=== PATIENT | female | born 1940 | race Caucasian/White ===

== ENCOUNTER 2017-07-03 16:08 | Inpatient (IN) | payer MEDICARE, OTHER ==
[~2017-07-03] VITALS: Ht 162.6 cm; Wt 72.6 kg
[~2017-07-03 16:08] MED LIST: ACET500C5 PO; BEN25 PO; CARV3.1260 PO; CLOP75TA27 PO; FAMO-96 PO; GLYB5TAB3 PO; HYDR-3498 PO; METF1000 PO; OLME5TAB4 PO; ONDA4TAB35 PO; PRED20TA PO
--- NOTE | 2017-07-03 16:43 | ERD ---
ER Documentation Chief Complaint Date/Time DATE: 07/03/17 TIME: 16:42 Chief Complaint pt has dysuria for 10 days. with burning sensation no n/v, HPI Patient is a 77-year-old female who was diagnosed with UTI 8 days ago and treated with Levaquin who presents with ongoing dysuria during this time. She states that her symptoms did not improve at all despite treatment. She denies fever, back pain, vomiting. She denies vaginal discharge.She reports having a history of chronic cystitis for the last 25 years. She is also had recurrent UTIs. She was seen by her urologist 8 days, but states that he is now on vacation and does not have a physician covering for him. She incidentally reports having a ground-level trip and fall 2010 days ago with injury to her head. She denies loss of consciousness, vomiting, headache, loss of balance or dizziness. She does take Plavix for coronary artery disease. ROS All systems reviewed and are negative except as per history of present illness. Medications Home Meds Reported Medications Olmesartan Medoxomil (Benicar) 20 Mg Tablet, 20 MG PO BID Y for NEEDED, #30 TAB 07/03/17 Metformin Hcl* (Metformin Hcl*) 1,000 Mg Tablet, 1000 MG PO BID, TAB 08/27/15 Glyburide* (Glyburide*) 5 Mg Tablet, 10 MG PO BID, TAB 08/27/15 Clopidogrel Bisulfate (Clopidogrel) 75 Mg Tablet, 75 MG PO DAILY, TAB 08/27/15 Discontinued Reported Medications Olmesartan Medoxomil (Benicar) 5 Mg Tablet, 10 MG PO DAILY, TAB 08/27/15 Carvedilol* (Carvedilol*) 3.125 Mg Tablet, 3.125 MG PO BID, TAB 08/27/15 Discontinued Scripts Diphenhydramine Hcl* (Benadryl*) 25 Mg Cap, 25 MG PO Q6 Y for ALLERGIC REACTION , #10 TAB Prov:SARA HUMPHRIES DO 01/06/16 Prednisone* (Prednisone*) 20 Mg Tab, 60 MG PO DAILY for 4 Days, TAB Prov:SARA HUMPHRIES DO 01/06/16 Famotidine* (Pepcid*) 20 Mg Tablet, 20 MG PO BID for 4 Days, TAB Prov:SARA HUMPHRIES DO 01/06/16 Acetaminophen* (Tylophen*) 500 Mg Capsule, 2 CAP PO Q8H Y for PAIN AND OR ELEVATED TEMP, #20 CAP Prov:NICK REAGAN 08/27/15 Hydrocodone Bit-Acetaminophen* (Chrisney*) 5-325 Mg Tab, 1 TAB PO Q6 Y for PAIN, # 7 TAB Prov:NICK REAGAN 08/27/15 Ondansetron Hcl* (Zofran* ODT) 4 mg -ODT Tab.disper, 4 MG PO Q6 Y for NAUSEA AND /OR VOMITING, #10 TAB Prov:NICK REAGAN 08/27/15 Allergies Allergies: Coded Allergies: No Known Drug Allergies (Verified Allergy, Mild, 07/03/17) PMhx/Soc Past medical history: Diabetes mellitus, coronary artery disease, Chronic cystitis Past surgical history: 9 stents Social history: Denies tobacco or alcohol History of Surgery: Yes (cardiac stents) Anesthesia Reaction: No Hx Neurological Disorder: No Hx Respiratory Disorders: No Hx Cardiac Disorders: Yes (CAD,CARDIAC STENTS,HTN,) Hx Psychiatric Problems: No Hx Miscellaneous Medical Probl: Yes (DM) Hx Alcohol Use: No Hx Substance Use: No Hx Tobacco Use: No FmHx Family History: coronary disease, No diabetes Physical Exam Vitals Vital Signs Date Time Temp Pulse Resp B/P Pulse Ox O2 Delivery O2 Flow Rate FiO2 07/03/17 20:51 75 17 112/85 98 Room Air 07/03/17 16:15 98.6 81 20 119/81 98 Physical Exam Const: Alert, no acute distress Head: Small hematoma to right vertex. Eyes: Normal Conjunctiva, No pallor, no icterus ENT: Normal External Ears, Nose and Mouth.Mucous membranes moist Neck: Full range of motion..~ No meningismus. Resp: Clear to auscultation bilaterally, No wheezes, no rales Cardio: Regular rate and rhythm, no murmurs Abd: Soft, non tender, non distended. Skin: No petechiae or rashes Back: No midline or flank tenderness Ext: No cyanosis, or edema Neur: Awake and alert, Cranial nerves II through XII intact bilaterally, strength and sensation full in 4 extremities, No pronator drift, no dysmetria Psych: Normal Mood and Affect Result Diagram: 9/6/17 1810 9/6/17 1810 Results 24 hrs Laboratory Tests Test 07/03/17 16:30 07/03/17 18:10 Urine Color YELLOW Urine Clarity TURBID Urine pH 5.0 Urine Specific [place] 1.014 Urine Ketones NEGATIVEmg/dL Urine Nitrite POSITIVEmg/dL Urine Bilirubin NEGATIVEmg/dL Urine Urobilinogen NEGATIVEmg/dL Urine Leukocyte Esterase 3+Jhon/ul Urine Microscopic RBC 88/HPF Urine Microscopic WBC > 182/HPF Urine Squamous Epithelial Cells FEW/HPF Urine Bacteria MANY/HPF Urine Mucus FEW/HPF Urine Hemoglobin 1+mg/dL Urine Glucose NEGATIVEmg/dL Urine Total Protein 1+mg/dl White Blood Count 10.810^3/ul Red Blood Count 4.2910^6/ul Hemoglobin 12.0g/dl Hematocrit 36.2% Mean Corpuscular Volume 84.4fl Mean Corpuscular Hemoglobin 28.0pg Mean Corpuscular Hemoglobin Concent 33.1g/dl Red Cell Distribution Width 12.7% Platelet Count 27548^3/UL Mean Platelet Volume 10.0fl Neutrophils % 78.9% Lymphocytes % 13.7% Monocytes % 5.9% Eosinophils % 0.5% Basophils % 0.3% Nucleated Red Blood Cells % 0.0/100WBC Neutrophils # (Manual) 8.610^3/ul Lymphocytes # 1.510^3/ul Monocytes # 0.610^3/ul Eosinophils # 0.110^3/ul Basophils # 0.010^3/ul Nucleated Red Blood Cells # 0.010^3/ul Sodium Level 137mmol/L Potassium Level 5.0mmol/L Chloride Level 102mmol/L Carbon Dioxide Level 26mmol/L Anion Gap 14 Blood Urea Nitrogen 20mg/dl Creatinine 0.98mg/dl Glucose Level 77mg/dl Calcium Level 9.9mg/dl Current Medications Medications (Trade) Dose Ordered Sig/Lesvia Route PRN Reason Start Time Stop Time Status Last Admin Dose Admin Ceftriaxone Sodium 1 gm 1 gm ONCE ONCE IM 07/03/17 18:00 07/03/17 18:04 DC 07/03/17 17:56 Cefepime HCl (Maxipime 2gm/50 ml (Pmx)) 50 ml @ 100 mls/hr ONCE ONCE IVPB 07/03/17 18:30 07/03/17 18:59 DC 07/03/17 18:34 Ondansetron HCl (Zofran Inj) 4 mg BRIDGE ORDER PRN IV NAUSEA AND/OR VOMITING 07/03/17 21:00 07/04/17 20:59 Acetaminophen (Tylenol Tab) 650 mg ER BRIDGE PRN PO MILD PAIN/FEVER 07/03/17 21:00 07/04/17 20:59 Procedures/MDM MDM: Patient is a 77-year-old female with history of chronic cystitis and recurrent UTIs who presents to the ER with failed outpatient treatment for urinary tract infection. Her UA is consistent with ongoing UTI, as evidenced by positive nitrite and numerous leukocytes as well as bacteria. She does not have evidence of sepsis or pyelonephritis. Her vital signs are stable and she has no fever or back pain. I reviewed her prior urine culture, and she has history of ESBL Klebsiella. I spoke with her PMD, Dr. Guerra, and he recommended admission for IV antibiotics and urology and ID consults, and likely PICC line for ongoing outpatient treatment. The patient is high risk for developing sepsis due to untreated UTI and underlying coronary artery disease and diabetes. She was given a dose of cefepime based upon prior sensitivities on last culture. A new culture was sent. With regard to her incidental minor head injury, the patient has no neurological symptoms or high risk features for intracranial injury despite being on Plavix. Given that it is been 10 days and she is asymptomatic, I do not believe that neuroimaging is emergently indicated. Departure Diagnosis: Primary Impression: Complicated urinary tract infection Additional Impression: Minor head injury Encounter type: initial encounter Qualified Code: S00.90XA - Minor head injury, initial encounter Condition: NAEEM Aragon MD Jul 03, 2017 16:43
[2017-07-03] MEDS ORDERED: OLME20TA20 PO (17:21)
[2017-07-03 17:32] LABS: ADD UMIC YES; UR ASCORBIC ACID NEGATIVE (NEGATIVE); UR BACTERIA MANY /HPF (NONE SEEN); UR BILIRUBIN (Dip) NEGATIVE (NEGATIVE); UR BLOOD (Dip) 1+ mg/dL (NEGATIVE); UR CLARITY TURBID (CLEAR); UR COLOR YELLOW (YELLOW); UR GLUCOSE (Dip) NEGATIVE (NEGATIVE); UR KETONES (Dip) NEGATIVE (NEGATIVE); UR LEUKOCYTE ESTERASE (Dip) 3+ Leu/ul (NEGATIVE); UR MUCUS FEW /HPF (NONE SEEN); UR NITRITE (Dip) POSITIVE (NEGATIVE); UR NONSQUAMOUS EPITHELIAL CELL 2 /HPF (NONE SEEN); UR RBC 88 /HPF (0-5); UR SPECIFIC GRAVITY (Dip) 1.014 (1.003-1.030); UR SQUAMOUS EPITHELIAL CELL FEW /HPF (FEW); UR TOTAL PROTEIN (Dip) 1+ mg/dl (NEGATIVE); UR UROBILINOGEN (Dip) NEGATIVE (NEGATIVE); UR WBC CLUMPS FEW /HPF (NONE SEEN)
[2017-07-03] MEDS ORDERED: CEFTRIAXONE 1 GM INJ IM ONE (18:00)
[2017-07-03] MEDS ORDERED: CEFEPIME 2GM/50 ML (PMX) 50 ML IVPB ONE (18:30)
[2017-07-03 18:52] LABS: HEMATOCRIT 36.2 % (37.0-47.0); MEAN CORPUSCULAR VOLUME 84.4 fl (82.0-101.0); RED BLOOD COUNT 4.29 10^6/ul (4.20-5.40); WHITE BLOOD COUNT 10.8 10^3/ul (4.8-10.8)
[2017-07-03 18:53] LABS: BASOPHILS % 0.3 % (0.0-2.0); EOSINOPHILS % 0.5 % (0.0-7.0); LYMPHOCYTES % 13.7 % (15.0-51.0); MEAN CORPUSCULAR HGB CONC 33.1 g/dl (32.0-37.0); MONOCYTES % 5.9 % (0.0-11.0); NEUTROPHILS % 78.9 % (39.0-77.0); PLATELET COUNT 313 10^3/UL (140-440); RED CELL DISTRIBUTION WIDTH 12.7 % (11.5-14.5)
[2017-07-03 18:54] LABS: EOSINOPHILS # 0.1 10^3/ul (0.0-0.5); LYMPHOCYTES # 1.5 10^3/ul (0.8-2.9); MONOCYTE # 0.6 10^3/ul (0.3-0.9)
[2017-07-03 19:10] LABS: CALCIUM 9.9 mg/dl (8.4-10.2); CREATININE 0.98 mg/dl (0.44-1.00)
[2017-07-03 20:51] VITALS: PULSE 75
[2017-07-03] MEDS ORDERED: ONDANSETRON 4 MG INJ IV PRN ×2 (21:00→23:00)
[2017-07-03] MEDS ORDERED: ACETAMINOPHEN 325 MG TAB PO PRN ×2 (21:00→23:00)
[2017-07-03 23:00] VITALS: Ht 162.6 cm; Wt 72.6 kg
[2017-07-03] MEDS ORDERED: NACL 0.9% 3 ML SYG IV SCH (23:00)
[2017-07-03] MEDS ORDERED: DOCUSATE SODIUM 100 MG CAP PO PRN (23:00)
[2017-07-03] MEDS ORDERED: BISACODYL (EC) 5 MG TAB PO PRN (23:00)
--- NOTE | 2017-07-03 23:09 | HP ---
Date/Time of Note Date/Time of Note DATE: 07/03/17 TIME: 22:56 Assessment/Plan VTE Prophylaxis VTE Prophylaxis Intervention: SCD's Lines/Catheters Urinary Cath still in place: No Assessment/Plan Chief Complaint/Hosp Course This is a 77-year-old female being admitted to the [facility] floor for: #1 complicated UTI: Patient is a history of recurrent urinary tract infections as well as bladder surgery. Currently patient is afebrile and white blood cell count is normal values. However UA is positive for UTI. She was recently treated with Levaquin as an outpatient. At the current time will treat with cefepime 2 g every 12 hours. Will await urine cultures results for sensitivities. Microbiology from 2014 does show Klebsiella pneumonia which was sensitive to cefepime as well as imipenem. She has already been started on cefepime and I will continue her on this medication at this time. Patient likely will need long-term duration of treatment and likely will need consider PICC line insertion however will wait for sensitivities. May also need urology consultation as well as ID. #2 diabetes mellitus: At the current time will check hemoglobin A1c, will hold home medications. Will put patient on insulin sliding scale. #3 coronary artery disease: Patient currently is only on Plavix. #4 hypertension: Continue Benicar, monitor blood pressure. #5 DVT GI prophylaxis: SCDs, as a vianey Problems: HPI/ROS Admit Date/Time Admit Date/Time Jul 03, 2017 at 20:56 Hx of Present Illness Complaint: Dysuria Patient is a 77-year-old female who was diagnosed with UTI 8 days ago and treated with Levaquin who presents with ongoing dysuria during this time. She states that her symptoms did not improve at all despite treatment. She denies fever, back pain, vomiting. She denies vaginal discharge.She reports having a history of chronic cystitis for the last 25 years. She is also had recurrent UTIs. She was seen by her urologist 8 days ago, but states that he is now on vacation and does not have a physician covering for him. She incidentally reports having a ground-level trip and fall 10 days ago with injury to her head. She denies loss of consciousness, vomiting, headache, loss of balance or dizziness. She does take Plavix for coronary artery disease. Allergies: NKDA Medications: See RACHEL RIVERS Const: As per HPI Eyes : No pain discharge or redness or change in visual acuity ENT: No pain, sore throat, congestion, congestion, dysphagia or discharge Respiratory: No shortness of breath, cough, sputum, wheezing, or pleuritic pain Cardiovascular: No chest pain, palpitation, PND, or edema GI : no change in appetite, abdominal pain, nausea, vomiting, diarrhea, constipation, or change in the color his stool Genitourinary: As per HPI Musculoskeletal: No joint pain, back pain, neck pain, restricted range of motion in neck or joints Skin: No rash, bruising or hives Neuro: No headache, dizziness, syncope, seizure, focal weakness Endocrine: No polyuria, polydipsia, temperature intolerance Psych: No hallucination, depression, anxiety or suicidal ideation PMH/Family/Social Past Medical History Beatties mellitus hypertension, coronary artery disease, chronic cystitis Past Surgical History Cardiac stent, bladder surgery Family History Significant Family History: no pertinent family hx Social History Alcohol Use: none Smoking Status: Never smoker Drug Use: none Exam/Review of Systems Vital Signs Vitals Vital Signs Date Time Temp Pulse Resp B/P Pulse Ox O2 Delivery O2 Flow Rate FiO2 07/03/17 20:51 75 17 112/85 98 Room Air 07/03/17 16:15 98.6 Exam Exam General: She is a well-developed female lying in bed in no acute distress she is very pleasant HEENT: Right posterior scalp bruising noted, no bleeding, EOMI Neck: Supple with full range of motion. No rigidity or meningismus Chest: Nontender Lungs: Clear to auscultation bilaterally no crackles rales or wheezing Heart: Normal S1-S2, Regular rhythm and rate. No overt murmur appreciated Abdomen: Soft , nontender, nondistended , bowel sounds are present. No guarding no rebound tenderness , No masses or organomegaly. No costovertebral temporal angle mass Extremities: Normal to inspection, no edema no cyanosis Neurologic: Normal mental status, speech normal, cranial nerves II through XII are intact, motor and sensory are intact, no focal weakness Labs Result Diagram: 07/03/17180907/03/171809 ALISON HANSEN Jul 03, 2017 23:08 ALISON HANSEN Jul 03, 2017 23:08
[2017-07-03] MEDS: FAMOTIDINE 20 MG TAB PO SCH (23:43)
[2017-07-04] MEDS: ACCU-CHEK XX SCH (02:00)
[2017-07-04] MEDS ORDERED: ACCU-CHEK XX SCH (02:00)
[2017-07-04 06:37] LABS: BASOPHILS % 0.3 % (0.0-2.0); EOSINOPHILS # 0.1 10^3/ul (0.0-0.5); EOSINOPHILS % 1.1 % (0.0-7.0); HEMATOCRIT 35.8 % (37.0-47.0); HEMOGLOBIN 11.6 g/dl (12.0-16.0); LYMPHOCYTES # 0.7 10^3/ul (0.8-2.9); LYMPHOCYTES % 7.9 % (15.0-51.0); MEAN CORPUSCULAR HEMOGLOBIN 27.2 pg (29.0-33.0); MEAN CORPUSCULAR HGB CONC 32.4 g/dl (32.0-37.0); MEAN PLATELET VOLUME 9.9 fl (7.4-10.4); MONOCYTE # 0.6 10^3/ul (0.3-0.9); MONOCYTES % 6.8 % (0.0-11.0); NEUTROPHILS % 83.4 % (39.0-77.0); PLATELET COUNT 263 10^3/UL (140-415); RED BLOOD COUNT 4.26 10^6/ul (4.20-5.40); RED CELL DISTRIBUTION WIDTH 12.8 % (11.5-14.5); WHITE BLOOD COUNT 8.9 10^3/ul (4.8-10.8)
[2017-07-04 07:02] LABS: ALBUMIN 3.6 g/dl (3.3-4.9); ALBUMIN/GLOBULIN RATIO 1.38; BILIRUBIN,INDIRECT 0.1 mg/dl (0-1.1); BILIRUBIN,TOTAL 0.1 mg/dl (0.2-1.3); CALCIUM 9.6 mg/dl (8.4-10.2); CHOL/HDL RATIO 2.8 RATIO; CREATININE 0.92 mg/dl (0.44-1.00); MAGNESIUM 1.8 mg/dl (1.7-2.5); PHOSPHORUS 4.1 mg/dl (2.5-4.9); POTASSIUM 4.7 mmol/L (3.5-5.1); TOTAL PROTEIN 6.2 g/dl (6.1-8.1)
[2017-07-04 07:29] LABS: THYROID STIMULATING HORMONE 0.922 MIU/L (0.465-4.680)
[2017-07-04] MEDS: INSULIN ASPART [NOVOLOG] 3 ML PEN SC SCH ×4 (08:00→21:02)
[2017-07-04] MEDS ORDERED: GLUCOSE GEL 15 GRAM TUBE PO PRN ×2 (08:30)
[2017-07-04] MEDS ORDERED: GLUCOSE GEL 15 GRAM TUBE BUCCAL PRN (08:30)
[2017-07-04] MEDS ORDERED: DEXTROSE 50% 50 ML SYRINGE IV PRN ×2 (08:30)
[2017-07-04] MEDS ORDERED: GLUCAGON 1 MG INJ IM PRN (08:30)
[2017-07-04] MEDS: FAMOTIDINE 20 MG TAB PO SCH ×2 (10:07→20:53)
[2017-07-04] MEDS: CEFEPIME 2GM/50 ML (PMX) 50 ML IVPB SCH ×2 (10:07→21:03)
[2017-07-04] MEDS: [UNRECOGNIZED DRUG - REMARK] XX SCH ×2 (12:00→20:00)
[2017-07-04 12:35] VITALS: BP 100/52; RESP 18
--- NOTE | 2017-07-04 16:39 | PN ---
Date/Time of Note Date/Time of Note DATE: 07/04/17 TIME: 16:28 Assessment/Plan VTE Prophylaxis VTE Prophylaxis Intervention: other Lines/Catheters IV Catheter Type (from Nrs): Saline Lock Urinary Cath still in place: No Assessment/Plan Assessment/Plan 1. Complicated UTI - patient is symptomatic with +UA. Awaiting final culture and sensitivities - Will continue on Cefepime for now and change if needed based on sensitivities - Will try and get further information from patient about bladder surgery when more cooperative. Having to run to the restroom often during interview. Will hold off on Urology at this time. - Will give 2 days of Pyridium for relief of dysuria 2. Diabetes mellitus - A1c 8.1 - On Metformin at home and on hold during hospitalization - On insulin sliding scale and accuchecks 3. CAD - stable. continue on Plavix 4. HTN - stable. continue on current medication Subjective 24 Hr Interval Summary Free Text/Dictation Patient seen and examined. She states she is still experiencing discomfort with urination as well as urgency. Denies any fevers, chills, nausea, vomiting , chest pain, or shortness of breath. Exam/Review of Systems Vital Signs Vitals Vital Signs Date Time Temp Pulse Resp B/P Pulse Ox O2 Delivery O2 Flow Rate FiO2 07/04/17 12:35 98.1 78 18 100/52 98 07/03/17 20:51 Room Air Intake and Output 07/03/17 07/03/17 07/04/17 15:00 23:00 07:00 Intake Total 340 ml Balance 340 ml Exam General: well developed, mild distress due to urge to urinate HEENT: Right posterior scalp bruising noted, no bleeding, EOMI Neck: Supple with full range of motion. Lungs: Clear to auscultation bilaterally no crackles rales or wheezing Heart:: Regular rhythm and rate. No overt murmur appreciated Abdomen: Soft , nontender, nondistended No guarding no rebound tenderness , No CVA tenderness Extremities: no edema no cyanosis Results Result Diagram: 07/04/17 0543 07/04/17 0544 Results 24 hrs Laboratory Tests Test 07/03/17 16:30 07/03/17 18:10 07/03/17 23:36 07/04/17 05:43 Urine Color YELLOW Urine Clarity TURBID A Urine pH 5.0 Urine Specific [place] 1.014 Urine Ketones NEGATIVE Urine Nitrite POSITIVE A Urine Bilirubin NEGATIVE Urine Urobilinogen NEGATIVE Urine Leukocyte Esterase 3+ H Urine Microscopic RBC 88 H Urine Microscopic WBC > 182 H Urine Squamous Epithelial Cells FEW Urine Bacteria MANY A Urine Mucus FEW A Urine Hemoglobin 1+ H Urine Glucose NEGATIVE Urine Total Protein 1+ H White Blood Count 10.8 8.9 Red Blood Count 4.29 4.26 Hemoglobin 12.0 11.6 L Hematocrit 36.2 L 35.8 L Mean Corpuscular Volume 84.4 84.0 Mean Corpuscular Hemoglobin 28.0 L 27.2 L Mean Corpuscular Hemoglobin Concent 33.1 32.4 Red Cell Distribution Width 12.7 12.8 Platelet Count 313 263 Mean Platelet Volume 10.0 # 9.9 Neutrophils % 78.9 H 83.4 H Lymphocytes % 13.7 L 7.9 L Monocytes % 5.9 6.8 Eosinophils % 0.5 1.1 Basophils % 0.3 0.3 Nucleated Red Blood Cells % 0.0 0.0 Neutrophils # (Manual) 8.6 H 7.4 Lymphocytes # 1.5 0.7 L Monocytes # 0.6 0.6 Eosinophils # 0.1 0.1 Basophils # 0.0 0.0 Nucleated Red Blood Cells # 0.0 0.0 Sodium Level 137 Potassium Level 5.0 Chloride Level 102 Carbon Dioxide Level 26 Anion Gap 14 Blood Urea Nitrogen 20 Creatinine 0.98 Glucose Level 77 Calcium Level 9.9 Bedside Glucose 91 Test 07/04/17 05:44 07/04/17 08:34 07/04/17 12:00 Sodium Level 138 Potassium Level 4.7 Chloride Level 104 Carbon Dioxide Level 27 Anion Gap 12 Blood Urea Nitrogen 20 Creatinine 0.92 Glucose Level 135 # Hemoglobin A1c 8.1 H Calcium Level 9.6 Phosphorus Level 4.1 Magnesium Level 1.8 Total Bilirubin 0.1 L Direct Bilirubin 0.00 Indirect Bilirubin 0.1 Aspartate Amino Transf (AST/SGOT) 18 Alanine Aminotransferase (ALT/SGPT) 33 Alkaline Phosphatase 71 Total Protein 6.2 Albumin 3.6 Globulin 2.60 Albumin/Globulin Ratio 1.38 Triglycerides Level 129 Cholesterol Level 136 LDL Cholesterol, Calculated 63 HDL Cholesterol 47 Cholesterol/HDL Ratio 2.8 Thyroid Stimulating Hormone (TSH) 0.922 Bedside Glucose 147 174 Medications Medications Current Medications Ondansetron HCl (Zofran Inj) 4 mg Q6H PRN IV NAUSEA AND/OR VOMITING; Start 07/03 at 23:00 Acetaminophen (Tylenol Tab) 650 mg Q6H PRN PO PAIN LEVEL 1-3 OR FEVER; Start at 23:00 Docusate Sodium (Colace) 100 mg Q12H PRN PO CONSTIPATION; Start 07/03/17 at 23: 00 Bisacodyl (Dulcolax) 5 mg DAILY PRN PO CONSTIPATION; Start 07/03/17 at 23:00 Famotidine 20 mg 20 mg Q12 PO Last administered on 07/04/17 10:07; Admin Dose 20 MG; Start 07/03/17 at 23:00 Cefepime HCl (Maxipime 2gm/50 ml (Pmx)) 50 ml @ 100 mls/hr Q12 IVPB Last administered on 07/04/17 10:07; Admin Dose 100 MLS/HR; Start 07/04/17 at 09:00 Miscellaneous Information 20 mg BID PRN PO NEEDED; Start 07/03/17 at 23:30; Status UNV Diagnostic Test (Pha) (Accu-Chek) 1 ea 02 XX ; Start 07/04/17 at 02:00 Miscellaneous Information 1 ea NOTE XX ; Start 07/04/17 at 08:30 Glucose (Glutose) 15 gm Q15M PRN PO DECREASED GLUCOSE; Start 07/04/17 at 08:30 Glucose (Glutose) 22.5 gm Q15M PRN PO DECREASED GLUCOSE; Start 07/04/17 at 08:30 Dextrose (D50w Syringe) 25 ml Q15M PRN IV DECREASED GLUCOSE; Start 07/04/17 at 08:30 Dextrose (D50w Syringe) 50 ml Q15M PRN IV DECREASED GLUCOSE; Start 07/04/17 at 08:30 Glucagon (Glucagen) 1 mg Q15M PRN IM DECREASED GLUCOSE; Start 07/04/17 at 08:30 Glucose (Glutose) 15 gm Q15M PRN BUCCAL DECREASED GLUCOSE; Start 07/04/17 at 08: 30 Miscellaneous Information (*Order Clarification Bulletin) MEDICATION REQUIRES CLARIFICATION: Q8H XX ; Start 07/04/17 at 12:00 Phenazopyridine HCl (Pyridium) 100 mg TID PO ; Start 07/04/17 at 16:30; Stop 07/06 at 21:00; Status UNV DONAVAN OLSEN MD Jul 04, 2017 16:39
[2017-07-04 17:02] VITALS: BP 127/67; RESP 20
[2017-07-04] MEDS: PHENAZOPYRIDINE 100 MG TAB PO SCH ×2 (17:49→20:53)
[2017-07-04 21:00] VITALS: BP 132/63; RESP 18
[2017-07-05] MEDS: ACCU-CHEK XX SCH (02:00)
[2017-07-05] MEDS: [UNRECOGNIZED DRUG - REMARK] XX SCH ×3 (02:56→20:00)
[2017-07-05 03:14] VITALS: BP 133/58; RESP 18
[2017-07-05 06:40] LABS: BASOPHIL # 0.1 10^3/ul (0.0-0.1); BASOPHILS % 0.7 % (0.0-2.0); EOSINOPHILS # 0.1 10^3/ul (0.0-0.5); EOSINOPHILS % 1.1 % (0.0-7.0); HEMATOCRIT 36.1 % (37.0-47.0); HEMOGLOBIN 11.5 g/dl (12.0-16.0); LYMPHOCYTES % 10.9 % (15.0-51.0); MEAN CORPUSCULAR HEMOGLOBIN 26.9 pg (29.0-33.0); MEAN CORPUSCULAR HGB CONC 31.9 g/dl (32.0-37.0); MEAN CORPUSCULAR VOLUME 84.3 fl (82.0-101.0); MEAN PLATELET VOLUME 9.8 fl (7.4-10.4); MONOCYTE # 0.7 10^3/ul (0.3-0.9); MONOCYTES % 7.3 % (0.0-11.0); NEUTROPHILS % 78.9 % (39.0-77.0); PLATELET COUNT 262 10^3/UL (140-415); RED BLOOD COUNT 4.28 10^6/ul (4.20-5.40); RED CELL DISTRIBUTION WIDTH 12.6 % (11.5-14.5); WHITE BLOOD COUNT 8.9 10^3/ul (4.8-10.8)
[2017-07-05 07:22] LABS: ALBUMIN 3.6 g/dl (3.3-4.9); CALCIUM 9.8 mg/dl (8.4-10.2); CREATININE 0.85 mg/dl (0.44-1.00); MAGNESIUM 1.7 mg/dl (1.7-2.5); POTASSIUM 4.6 mmol/L (3.5-5.1)
[2017-07-05 07:58] VITALS: BP 102/56; RESP 18
[2017-07-05] MEDS: PHENAZOPYRIDINE 100 MG TAB PO SCH ×3 (08:16→21:24)
[2017-07-05] MEDS: FAMOTIDINE 20 MG TAB PO SCH ×2 (08:16→21:25)
[2017-07-05] MEDS: INSULIN ASPART [NOVOLOG] 3 ML PEN SC SCH ×4 (08:17→21:33)
[2017-07-05] MEDS: CEFEPIME 2GM/50 ML (PMX) 50 ML IVPB SCH ×2 (08:21→21:25)
[2017-07-05 15:43] VITALS: BP 153/71; RESP 18
--- NOTE | 2017-07-05 17:55 | PN ---
Date/Time of Note Date/Time of Note DATE: 07/05/17 TIME: 17:51 Assessment/Plan VTE Prophylaxis VTE Prophylaxis Intervention: other Lines/Catheters IV [facility] Saline Lock Urinary Cath still in place: No Assessment/Plan Assessment/Plan 1. Complicated UTI - patient is symptomatic with +UA. - Cultures growing Klebsiella and sensitive to cephalosporins - Will continue on Cefepime for now and change to Keflex upon discharge - Patient states the last time she experienced these symptoms she was seen by Urology who helped "clean it up". Will obtain Urology consult and appreciate recommendations - Will give 2 days of Pyridium for relief of dysuria 2. Diabetes mellitus - A1c 8.1 - On Metformin at home and on hold during hospitalization - On insulin sliding scale and accuchecks 3. CAD - stable. continue on Plavix 4. HTN - stable. continue on current medication Subjective 24 Hr Interval Summary Free Text/Dictation Patient states shes still not feeling well and concerned about her foul smelling urine and states when this has happened in the past she had a urologist "clean it out" and symptoms resolved. Her urologist is out of town for 1 month and requesting to see another Urologist. Denies any other acute issues and no overnight events. Exam/Review of Systems Vital Signs Vitals Vital Signs Date Time Temp Pulse Resp B/P Pulse Ox O2 Delivery O2 Flow Rate FiO2 07/05/17 15:43 98.2 76 18 153/71 97 07/03/17 20:51 Room Air Intake and Output 07/04/17 07/04/17 07/05/17 14:59 22:59 06:59 Intake Total 50 ml 800 ml 900 ml Output Total 600 ml Balance 50 ml 200 ml 900 ml Exam General: well developed, cooperative, NAD HEENT: Right posterior scalp bruising noted, no bleeding, EOMI Neck: Supple with full range of motion. Lungs: Clear to auscultation bilaterally no crackles rales or wheezing Heart:: Regular rhythm and rate. No overt murmur appreciated Abdomen: Soft , nontender, nondistended No guarding no rebound tenderness , No CVA tenderness Extremities: no edema no cyanosis Results Result Diagram: 07/05/17 0543 07/05/17 0543 Results 24 hrs Laboratory Tests Test 07/04/17 20:50 07/05/17 05:43 07/05/17 08:14 07/05/17 11:56 Bedside Glucose 239 H 197 232 H White Blood Count 8.9 Red Blood Count 4.28 Hemoglobin 11.5 L Hematocrit 36.1 L Mean Corpuscular Volume 84.3 Mean Corpuscular Hemoglobin 26.9 L Mean Corpuscular Hemoglobin Concent 31.9 L Red Cell Distribution Width 12.6 Platelet Count 262 Mean Platelet Volume 9.8 Neutrophils % 78.9 H Lymphocytes % 10.9 L Monocytes % 7.3 Eosinophils % 1.1 Basophils % 0.7 Nucleated Red Blood Cells % 0.0 Neutrophils # (Manual) 7.0 Lymphocytes # 1.0 Monocytes # 0.7 Eosinophils # 0.1 Basophils # 0.1 Nucleated Red Blood Cells # 0.0 Sodium Level 136 Potassium Level 4.6 Chloride Level 100 Carbon Dioxide Level 28 Anion Gap 13 Blood Urea Nitrogen 20 Creatinine 0.85 Glucose Level 205 Calcium Level 9.8 Phosphorus Level 4.0 Magnesium Level 1.7 Albumin 3.6 Test 07/05/17 17:20 Bedside Glucose 182 Medications Medications Current Medications Ondansetron HCl (Zofran Inj) 4 mg Q6H PRN IV NAUSEA AND/OR VOMITING; Start 07/03 at 23:00 Acetaminophen (Tylenol Tab) 650 mg Q6H PRN PO PAIN LEVEL 1-3 OR FEVER; Start at 23:00 Docusate Sodium (Colace) 100 mg Q12H PRN PO CONSTIPATION; Start 07/03/17 at 23: 00 Bisacodyl (Dulcolax) 5 mg DAILY PRN PO CONSTIPATION; Start 07/03/17 at 23:00 Famotidine 20 mg 20 mg Q12 PO Last administered on 07/05/17 08:16; Admin Dose 20 MG; Start 07/03/17 at 23:00 Cefepime HCl (Maxipime 2gm/50 ml (Pmx)) 50 ml @ 100 mls/hr Q12 IVPB Last administered on 07/05/17 08:21; Admin Dose 100 MLS/HR; Start 07/04/17 at 09:00 Miscellaneous Information 20 mg BID PRN PO NEEDED; Start 07/03/17 at 23:30; Status UNV Diagnostic Test (Pha) (Accu-Chek) 1 ea 02 XX ; Start 07/04/17 at 02:00 Miscellaneous Information 1 ea NOTE XX ; Start 07/04/17 at 08:30 Glucose (Glutose) 15 gm Q15M PRN PO DECREASED GLUCOSE; Start 07/04/17 at 08:30 Glucose (Glutose) 22.5 gm Q15M PRN PO DECREASED GLUCOSE; Start 07/04/17 at 08:30 Dextrose (D50w Syringe) 25 ml Q15M PRN IV DECREASED GLUCOSE; Start 07/04/17 at 08:30 Dextrose (D50w Syringe) 50 ml Q15M PRN IV DECREASED GLUCOSE; Start 07/04/17 at 08:30 Glucagon (Glucagen) 1 mg Q15M PRN IM DECREASED GLUCOSE; Start 07/04/17 at 08:30 Glucose (Glutose) 15 gm Q15M PRN BUCCAL DECREASED GLUCOSE; Start 07/04/17 at 08: 30 Miscellaneous Information (*Order Clarification Bulletin) MEDICATION REQUIRES CLARIFICATION: Q8H XX ; Start 07/04/17 at 12:00 Phenazopyridine HCl (Pyridium) 100 mg TID PO Last administered on 07/05/17t 12: 31; Admin Dose 100 MG; Start 07/04/17 at 16:30; Stop 07/06/17 at 21:00 DONAVAN OLSEN MD Jul 05, 2017 17:55
[2017-07-05 19:50] VITALS: BP 121/66; RESP 19
--- NOTE | 2017-07-05 21:09 | CONS ---
Date/Time of Note Date/Time of Note DATE: 07/05/17 TIME: 20:54 Assessment/Plan Assessment/Plan Chief Complaint/Hosp Course 77-year-old female with recurrent urinary tract infection and kidney stones. Presently she does have left upper ureteral stone was left hydronephrosis however she herself complains more of pain in the suprapubic area and in the urethra from having dysuria and much less from her left kidney. She does have a history of bladder lift with a mesh and that is hurting her and she has seen other urologists in the past because of that. Presently we shall treat her urinary tract infection. We will get a KUB to see if we can see the stones on the plain film. As far as the treatment for the stones we will have to talk to her and her family again there is a problem here was language barrier and the patient is more centered on her bladder problem rather than on her ureteral and kidney stones. I did spend over 1 hour with this patient explaining discussing her urinary problem even she asked me about the bump on her head whether that would go away and all this time we had to use a pharmacy manager who translated to her intermediate and to us in [place]ic . Problems: Consultation Date/Type/Reason Admit Date/Time Jul 03, 2017 at 20:56 Date of Consultation: Jul 05, 2017 Type of Consultation: Urology Reason for Consultation Left upper ureteral stone was hydronephrosis and urinary tract infection. Referring Provider: DONAVAN OLSEN MD Hx of Present Illness This is a 77-year-old female who speaks only [place] who presented to the hospital was pain on urination and recurrent urinary tract infection. He had a pharmacy manager on the phone translating to her her name is Aminata WEINBERG per ID # [id number] the patient states that she has been having pain with her urination her bladder hurts. She had surgery for bladder about 2 years ago and most likely they use a mesh. She has seen multiple urologists and she was told and that is her "by her doctor that the mesh was put around or bad material and the doctor could not take it out. She knows that she has had kidney stones and she said that has cleaned her before. However she underwent a CT scan of the abdomen and pelvis here and that showed a left upper ureteral stone with hydronephrosis in addition to bilateral renal stones. Subjective hx not possible: other Constitutional: no complaints Eyes: no complaints ENT: no complaints Respiratory: no complaints Cardiovascular: No chest pain Gastrointestinal: pain (In suprapubic area) Genitourinary: dysuria Musculoskeletal: no complaints Skin: bruising, other (Patient states that she fell about 2 weeks ago and she has a bump on her head) Neurologic: No confusion, No dizziness Psychological: anxiety Past Medical History Medical History: coronary artery disease, diabetes, urinary tract infection Past Surgical History Past Surgical Hx: other (Bladder lift with a mesh) Social History Alcohol Use: none Smoking Status: Never smoker Drug Use: none Other Social History 2 para 2, 2 normal deliveries Exam/Review of Systems Vital Signs Vitals Vital Signs Date Time Temp Pulse Resp B/P Pulse Ox O2 Delivery O2 Flow Rate FiO2 07/05/17 15:43 98.2 76 18 153/71 97 07/03/17 20:51 Room Air Intake and Output 07/04/17 07/04/17 07/05/17 15:00 23:00 07:00 Intake Total 50 ml 900 ml 800 ml Output Total 600 ml Balance 50 ml 300 ml 800 ml Exam Constitutional: alert, oriented Psych: no complaints Head: other (She has a bump on her head from recent fall 2 weeks ago) Eyes: nl conjunctiva ENMT: nl external ears & nose Neck: supple Respiratory: normal air movement Cardiovascular: No edema Gastrointestinal: soft, No mass Genitourinary - Female: CVA tenderness (Left side), other (Suprapubic tenderness) Musculoskeletal: nl extremities to inspection Extremities: No calf tenderness Results CT scan of abdomen and pelvis: 1. Mild left hydroureteronephrosis with perinephric stranding related to 1.3 cm obstructing stone in the proximal left ureter. 2. Additional smaller nonobstructing stones in bilateral kidneys measures up to 5 mm left greater than right. 3. Small area of scarring involving the upper pole right kidney. 4. Vascular calcifications. 5. Cardiomegaly, trace bilateral pleural effusions. Pleural parenchymal scarring and fibrotic changes in the lung bases. Result Diagram: 07/05/17 0543 07/05/17 0543 Results 24 hrs Laboratory Tests Test 07/05/17 05:43 07/05/17 08:14 07/05/17 11:56 07/05/17 17:20 White Blood Count 8.9 Red Blood Count 4.28 Hemoglobin 11.5 L Hematocrit 36.1 L Mean Corpuscular Volume 84.3 Mean Corpuscular Hemoglobin 26.9 L Mean Corpuscular Hemoglobin Concent 31.9 L Red Cell Distribution Width 12.6 Platelet Count 262 Mean Platelet Volume 9.8 Neutrophils % 78.9 H Lymphocytes % 10.9 L Monocytes % 7.3 Eosinophils % 1.1 Basophils % 0.7 Nucleated Red Blood Cells % 0.0 Neutrophils # (Manual) 7.0 Lymphocytes # 1.0 Monocytes # 0.7 Eosinophils # 0.1 Basophils # 0.1 Nucleated Red Blood Cells # 0.0 Sodium Level 136 Potassium Level 4.6 Chloride Level 100 Carbon Dioxide Level 28 Anion Gap 13 Blood Urea Nitrogen 20 Creatinine 0.85 Glucose Level 205 Calcium Level 9.8 Phosphorus Level 4.0 Magnesium Level 1.7 Albumin 3.6 Bedside Glucose 197 232 H 182 Medications Medications Current Medications Ondansetron HCl (Zofran Inj) 4 mg Q6H PRN IV NAUSEA AND/OR VOMITING; Start 07/03 at 23:00 Acetaminophen (Tylenol Tab) 650 mg Q6H PRN PO PAIN LEVEL 1-3 OR FEVER; Start at 23:00 Docusate Sodium (Colace) 100 mg Q12H PRN PO CONSTIPATION; Start 07/03/17 at 23: 00 Bisacodyl (Dulcolax) 5 mg DAILY PRN PO CONSTIPATION; Start 07/03/17 at 23:00 Famotidine 20 mg 20 mg Q12 PO Last administered on 07/05/17 08:16; Admin Dose 20 MG; Start 07/03/17 at 23:00 Cefepime HCl (Maxipime 2gm/50 ml (Pmx)) 50 ml @ 100 mls/hr Q12 IVPB Last administered on 07/05/17 08:21; Admin Dose 100 MLS/HR; Start 07/04/17 at 09:00 Miscellaneous Information 20 mg BID PRN PO NEEDED; Start 07/03/17 at 23:30; Status UNV Diagnostic Test (Pha) (Accu-Chek) 1 ea 02 XX ; Start 07/04/17 at 02:00 Miscellaneous Information 1 ea NOTE XX ; Start 07/04/17 at 08:30 Glucose (Glutose) 15 gm Q15M PRN PO DECREASED GLUCOSE; Start 07/04/17 at 08:30 Glucose (Glutose) 22.5 gm Q15M PRN PO DECREASED GLUCOSE; Start 07/04/17 at 08:30 Dextrose (D50w Syringe) 25 ml Q15M PRN IV DECREASED GLUCOSE; Start 07/04/17 at 08:30 Dextrose (D50w Syringe) 50 ml Q15M PRN IV DECREASED GLUCOSE; Start 07/04/17 at 08:30 Glucagon (Glucagen) 1 mg Q15M PRN IM DECREASED GLUCOSE; Start 07/04/17 at 08:30 Glucose (Glutose) 15 gm Q15M PRN BUCCAL DECREASED GLUCOSE; Start 07/04/17 at 08: 30 Miscellaneous Information (*Order Clarification Bulletin) MEDICATION REQUIRES CLARIFICATION: Q8H XX ; Start 07/04/17 at 12:00 Phenazopyridine HCl (Pyridium) 100 mg TID PO Last administered on 07/05/17t 12: 31; Admin Dose 100 MG; Start 07/04/17 at 16:30; Stop 07/06/17 at 21:00 MARTINEZ KRAUS MD Jul 05, 2017 21:05
[2017-07-05] MEDS ORDERED: INSULIN ASPART [NOVOLOG] 3 ML PEN SC ONE (21:38)
[2017-07-06 02:00] VITALS: BP 120/60; RESP 20
[2017-07-06] MEDS: ACCU-CHEK XX SCH (02:00)
--- NOTE | 2017-07-06 03:17 | RADRPT ---
PROCEDURE: XR Abdomen. CLINICAL INDICATION: 77 years of age, female. Abdominal pain. Evaluate for kidney stone TECHNIQUE: Supine AP views of the abdomen. COMPARISON: CT abdomen pelvis August 27, 2015 FINDINGS: There is a moderate amount of gas and stool in the colon that limits evaluation for urinary calculi. No calculi are clearly identified over either kidney, ureter or the bladder. However, calculi could be overlooked. Round calcification in the right pelvis resembles a phlebolith. Cholecystectomy clips right upper quadrant. Bowel gas pattern is nonobstructive. No extraluminal gas collections are identified. Vascular calcification. Osteopenia. IMPRESSION: Limited evaluation for urinary calculi due to gas and stool in the colon. No urinary calculi are ashly ntified within the limitations of this exam.. RPTAT: HCTS Physician Rachel Date Time Electronically viewed and signed by Physician Rachel on 07/06/2017 03:16 /
[2017-07-06] MEDS: [UNRECOGNIZED DRUG - REMARK] XX SCH ×2 (07:00→12:00)
[2017-07-06 08:05] VITALS: BP 125/57; RESP 16
[2017-07-06] MEDS: CEFEPIME 2GM/50 ML (PMX) 50 ML IVPB SCH (08:13)
[2017-07-06] MEDS: FAMOTIDINE 20 MG TAB PO SCH ×2 (08:16→22:59)
[2017-07-06] MEDS: PHENAZOPYRIDINE 100 MG TAB PO SCH ×3 (08:16→22:59)
[2017-07-06] MEDS: INSULIN ASPART [NOVOLOG] 3 ML PEN SC SCH ×4 (08:17→23:01)
--- NOTE | 2017-07-06 14:26 | PN ---
Date/Time of Note Date/Time of Note DATE: 07/06/17 TIME: 14:20 Assessment/Plan VTE Prophylaxis VTE Prophylaxis Intervention: other Lines/Catheters IV C[facility]ter Type (from [facility] Urinary Cath still in place: No Assessment/Plan Chief Complaint/Hosp Course 77-year-old female with recurrent urinary tract infection and kidney stones. Presently she does have left upper ureteral stone with left hydronephrosis. she complains more of pain in the suprapubic area and in the urethra from having dysuria and much less from her left kidney. She does have a history of bladder lift with a mesh and that is hurting her and she has seen other urologists in the past because of that. Presently we shall treat her urinary tract infection. We will get a KUB to see if we can see the stones on the plain film. As far as the treatment for the stones we will have to talk to her and her family again there is a problem here with language barrier and the patient is more centered on her bladder problem rather than on her ureteral and kidney stones. Problems: Subjective 24 Hr Interval Summary Free Text/Dictation Lower abdominal pain and urinary tract infection in addition to left renal an upper ureteral stone Subjective hx not possible: other (Language barrier) Constitutional: no complaints Eyes: no complaints ENT: no complaints Respiratory: no complaints Cardiovascular: no complaints Gastrointestinal: pain (Suprapubic area) Genitourinary: dysuria Musculoskeletal: no complaints Skin: no complaints Exam/Review of Systems Vital Signs Vitals Vital Signs Date Time Temp Pulse Resp B/P Pulse Ox O2 Delivery O2 Flow Rate FiO2 07/06/17 08:05 98.2 65 16 125/57 97 07/03/17 20:51 Room Air Intake and Output 07/05/17 07/05/17 07/06/17 15:00 23:00 07:00 Intake Total 50 ml 950 ml 480 ml Balance 50 ml 950 ml 480 ml Exam Constitutional: alert, oriented Psych: no complaints Head: normocephalic ENMT: nl external ears & nose Neck: non-tender, supple Respiratory: normal air movement Cardiovascular: No edema Gastrointestinal: soft, No mass Genitourinary - Female: No CVA tenderness (Left side) Extremities: No calf tenderness, No edema Results Result Diagram: 07/05/17 0543 07/05/17 0543 Results 24 hrs Laboratory Tests Test 07/05/17 17:20 9/8/17 21:31 07/06/17 01:59 07/06/17 07:46 Bedside Glucose 182 308 H 135 159 Test 07/06/17 11:56 Bedside Glucose 316 H Medications Medications Current Medications Ondansetron HCl (Zofran Inj) 4 mg Q6H PRN IV NAUSEA AND/OR VOMITING; Start 07/03 at 23:00 Acetaminophen (Tylenol Tab) 650 mg Q6H PRN PO PAIN LEVEL 1-3 OR FEVER; Start at 23:00 Docusate Sodium (Colace) 100 mg Q12H PRN PO CONSTIPATION; Start 07/03/17 at 23: 00 Bisacodyl (Dulcolax) 5 mg DAILY PRN PO CONSTIPATION; Start 07/03/17 at 23:00 Famotidine 20 mg 20 mg Q12 PO Last administered on 07/06/17 08:16; Admin Dose 20 MG; Start 07/03/17 at 23:00 Cefepime HCl (Maxipime 2gm/50 ml (Pmx)) 50 ml @ 100 mls/hr Q12 IVPB Last administered on 07/06/17 08:13; Admin Dose 100 MLS/HR; Start 07/04/17 at 09:00 Miscellaneous Information 20 mg BID PRN PO NEEDED; Start 07/03/17 at 23:30; Status UNV Diagnostic Test (Pha) (Accu-Chek) 1 ea 02 XX ; Start 07/04/17 at 02:00 Miscellaneous Information 1 ea NOTE XX ; Start 07/04/17 at 08:30 Glucose (Glutose) 15 gm Q15M PRN PO DECREASED GLUCOSE; Start 07/04/17 at 08:30 Glucose (Glutose) 22.5 gm Q15M PRN PO DECREASED GLUCOSE; Start 07/04/17 at 08:30 Dextrose (D50w Syringe) 25 ml Q15M PRN IV DECREASED GLUCOSE; Start 07/04/17 at 08:30 Dextrose (D50w Syringe) 50 ml Q15M PRN IV DECREASED GLUCOSE; Start 07/04/17 at 08:30 Glucagon (Glucagen) 1 mg Q15M PRN IM DECREASED GLUCOSE; Start 07/04/17 at 08:30 Glucose (Glutose) 15 gm Q15M PRN BUCCAL DECREASED GLUCOSE; Start 07/04/17 at 08: 30 Miscellaneous Information (*Order Clarification Bulletin) MEDICATION REQUIRES CLARIFICATION: Q8H XX ; Start 07/04/17 at 12:00 Phenazopyridine HCl (Pyridium) 100 mg TID PO Last administered on 07/06/17t 12: 04; Admin Dose 100 MG; Start 07/04/17 at 16:30; Stop 07/06/17 at 21:00 MARTINEZ KRAUS MD Jul 06, 2017 14:26
[2017-07-06 15:03] VITALS: BP 150/60; RESP 16
--- NOTE | 2017-07-06 15:17 | PN ---
Date/Time of Note Date/Time of Note DATE: 07/06/17 TIME: 15:10 Assessment/Plan VTE Prophylaxis VTE Prophylaxis Intervention: LMWH Lines/Catheters IV [facility] Saline [facility] Urinary Cath still in place: No Assessment/Plan Assessment/Plan 1. Complicated UTI - Patient condition is improving. She plans to see her Urologist in 1 month when he returns regarding mesh in bladder. - Cultures growing Klebsiella and sensitive to cephalosporins - Will switch to Keflex 500mg BID tmrw and monitor for improvement in symptoms. - Pyridium for relief of dysuria 2. Diabetes mellitus - A1c 8.1 - On Metformin at home and on hold during hospitalization - On insulin sliding scale and accuchecks 3. CAD - stable. continue on Plavix 4. HTN - stable. continue on current medication Subjective 24 Hr Interval Summary Free Text/Dictation Patient appears to be feeling better although still complaining of foul smell with urination. She states she slept well yesterday which may be why she feels slightly better since did not get rest for 3 days due to urgency/frequency of urination. Trying to keep well hydrated and drinking 2-2.5 pitchers of water daily in order to "clean her bladder". Denies any new complaints and no acute overnight events. Exam/Review of Systems Vital Signs Vitals Vital Signs Date Time Temp Pulse Resp B/P Pulse Ox O2 Delivery O2 Flow Rate FiO2 07/06/17 15:03 98.3 68 16 150/60 96 07/03/17 20:51 Room Air Intake and Output 07/05/17 07/05/17 07/06/17 15:00 23:00 07:00 Intake Total 50 ml 950 ml 480 ml Balance 50 ml 950 ml 480 ml Exam General: well developed, cooperative, NAD HEENT: Right posterior scalp bruising noted, no bleeding, EOMI Neck: Supple with full range of motion. Lungs: Clear to auscultation bilaterally no crackles rales or wheezing Heart:: Regular rhythm and rate. No overt murmur appreciated Abdomen: Soft , nontender, nondistended No guarding no rebound tenderness , No CVA tenderness Extremities: no edema no cyanosis Results Result Diagram: 07/05/17 0543 07/05/17 0543 Results 24 hrs Laboratory Tests Test 07/05/17 17:20 07/05/17 21:31 07/06/17 01:59 07/06/17 07:46 Bedside Glucose 182 308 H 135 159 Test 07/06/17 11:56 Bedside Glucose 316 H Medications Medications Current Medications Ondansetron HCl (Zofran Inj) 4 mg Q6H PRN IV NAUSEA AND/OR VOMITING; Start 07/03 at 23:00 Acetaminophen (Tylenol Tab) 650 mg Q6H PRN PO PAIN LEVEL 1-3 OR FEVER; Start at 23:00 Docusate Sodium (Colace) 100 mg Q12H PRN PO CONSTIPATION; Start 07/03/17 at 23: 00 Bisacodyl (Dulcolax) 5 mg DAILY PRN PO CONSTIPATION; Start 07/03/17 at 23:00 Famotidine 20 mg 20 mg Q12 PO Last administered on 07/06/17 08:16; Admin Dose 20 MG; Start 07/03/17 at 23:00 Cefepime HCl (Maxipime 2gm/50 ml (Pmx)) 50 ml @ 100 mls/hr Q12 IVPB Last administered on 07/06/17 08:13; Admin Dose 100 MLS/HR; Start 07/04/17 at 09:00 Miscellaneous Information 20 mg BID PRN PO NEEDED; Start 07/03/17 at 23:30; Status UNV Diagnostic Test (Pha) (Accu-Chek) 1 ea 02 XX ; Start 07/04/17 at 02:00 Miscellaneous Information 1 ea NOTE XX ; Start 07/04/17 at 08:30 Glucose (Glutose) 15 gm Q15M PRN PO DECREASED GLUCOSE; Start 07/04/17 at 08:30 Glucose (Glutose) 22.5 gm Q15M PRN PO DECREASED GLUCOSE; Start 07/04/17 at 08:30 Dextrose (D50w Syringe) 25 ml Q15M PRN IV DECREASED GLUCOSE; Start 07/04/17 at 08:30 Dextrose (D50w Syringe) 50 ml Q15M PRN IV DECREASED GLUCOSE; Start 07/04/17 at 08:30 Glucagon (Glucagen) 1 mg Q15M PRN IM DECREASED GLUCOSE; Start 07/04/17 at 08:30 Glucose (Glutose) 15 gm Q15M PRN BUCCAL DECREASED GLUCOSE; Start 07/04/17 at 08: 30 Miscellaneous Information (*Order Clarification Bulletin) MEDICATION REQUIRES CLARIFICATION: Q8H XX ; Start 07/04/17 at 12:00 Phenazopyridine HCl (Pyridium) 100 mg TID PO Last administered on 07/06/17t 12: 04; Admin Dose 100 MG; Start 07/04/17 at 16:30; Stop 07/06/17 at 21:00 DONAVAN OLSEN MD Jul 06, 2017 15:17
[2017-07-06 20:00] VITALS: BP 128/75; RESP 18
[2017-07-06] MEDS ORDERED: LOSARTAN 50 MG TAB PO PRN (21:30)
[2017-07-06] MEDS: LACTOBACILLUS RHAMNOSUS CAP PO SCH (22:59)
[2017-07-06] MEDS: CEPHALEXIN 500 MG CAP PO SCH (22:59)
[2017-07-07 02:00] VITALS: BP 117/55; RESP 19
[2017-07-07] MEDS: ACCU-CHEK XX SCH (02:00)
[2017-07-07 06:43] LABS: BASOPHIL # 0.1 10^3/ul (0.0-0.1); BASOPHILS % 0.7 % (0.0-2.0); EOSINOPHILS # 0.1 10^3/ul (0.0-0.5); EOSINOPHILS % 1.6 % (0.0-7.0); HEMATOCRIT 36.6 % (37.0-47.0); HEMOGLOBIN 12.1 g/dl (12.0-16.0); LYMPHOCYTES # 1.3 10^3/ul (0.8-2.9); LYMPHOCYTES % 16.6 % (15.0-51.0); MEAN CORPUSCULAR HEMOGLOBIN 27.6 pg (29.0-33.0); MEAN CORPUSCULAR HGB CONC 33.1 g/dl (32.0-37.0); MEAN CORPUSCULAR VOLUME 83.4 fl (82.0-101.0); MEAN PLATELET VOLUME 9.9 fl (7.4-10.4); MONOCYTE # 0.7 10^3/ul (0.3-0.9); MONOCYTES % 8.5 % (0.0-11.0); NEUTROPHILS % 71.7 % (39.0-77.0); PLATELET COUNT 240 10^3/UL (140-415); RED BLOOD COUNT 4.39 10^6/ul (4.20-5.40); RED CELL DISTRIBUTION WIDTH 12.3 % (11.5-14.5); WHITE BLOOD COUNT 7.7 10^3/ul (4.8-10.8)
[2017-07-07 07:01] LABS: ALBUMIN 3.6 g/dl (3.3-4.9); CREATININE 0.77 mg/dl (0.44-1.00); MAGNESIUM 1.8 mg/dl (1.7-2.5); PHOSPHORUS 3.7 mg/dl (2.5-4.9); POTASSIUM 4.7 mmol/L (3.5-5.1)
[2017-07-07] MEDS: FAMOTIDINE 20 MG TAB PO SCH ×2 (08:07→21:25)
[2017-07-07] MEDS: CEPHALEXIN 500 MG CAP PO SCH ×2 (08:07→21:25)
[2017-07-07] MEDS: LACTOBACILLUS RHAMNOSUS CAP PO SCH ×2 (08:07→21:25)
[2017-07-07] MEDS: INSULIN ASPART [NOVOLOG] 3 ML PEN SC SCH ×4 (08:09→21:26)
[2017-07-07] MEDS: LOSARTAN 50 MG TAB PO SCH (08:10)
[2017-07-07 10:04] VITALS: BP 149/83; RESP 18
--- NOTE | 2017-07-07 11:44 | RADRPT ---
PROCEDURE: XR Abdomen. CLINICAL INDICATION: Left-sided renal calculi TECHNIQUE: Single AP view of the abdomen is available for review. COMPARISON: 98 17 FINDINGS: The bowel gas pattern is normal. There is no evidence of obstruction. There are no abnormal calcifications overlying the urinary tracts. No free air identified. The osseous structures do not demonstrate acute abnormality. IMPRESSION: 1. No evidence of bowel obstruction, perforation or radiopaque calculi overlying the urinary tracts . RPTAT: QQ .Iván Delatorre MD, Date Time Electronically viewed and signed by .Iván Delatorre MD, MD on 07/07/2017 11:44 .M/
[2017-07-07 15:51] VITALS: BP 103/55; RESP 18
--- NOTE | 2017-07-07 18:24 | PN ---
Date/Time of Note Date/Time of Note DATE: 07/07/17 TIME: 18:19 Assessment/Plan VTE Prophylaxis VTE Prophylaxis Intervention: heparin Lines/Catheters IV Catheter Type (from Nrs): Saline Lock Urinary Cath still in place: No Assessment/Plan Assessment/Plan 1. Complicated UTI - patient is symptomatic with +UA. - Cultures growing Klebsiella and sensitive to cephalosporins - Will continue on Cefepime for now and change to Keflex upon discharge - Urology on board and believes her issue lies more with her nephrolithiasis rather than bladder mesh. Appreciate input 2. Diabetes mellitus - A1c 8.1 - On Metformin at home and on hold during hospitalization - On insulin sliding scale and accuchecks - Will ask for no more rice to be served with meals 3. CAD - stable. continue on Plavix 4. HTN - stable. continue on current medication Subjective 24 Hr Interval Summary Free Text/Dictation patient states she is feeling better. She is concerned about getting rice for every meal however. Denies any fevers, chills, nausea, vomiting, chest pain, or shortness of breath. Still having dysuria and urgency. Exam/Review of Systems Vital Signs Vitals Vital Signs Date Time Temp Pulse Resp B/P Pulse Ox O2 Delivery O2 Flow Rate FiO2 07/07/17 15:51 99.4 74 18 103/55 97 07/03/17 20:51 Room Air Intake and Output 07/06/17 07/06/17 07/07/17 15:00 23:00 07:00 Intake Total 50 ml 1260 ml 240 ml Output Total 1100 ml 500 ml Balance 50 ml 160 ml -260 ml Exam General: well developed, cooperative, NAD HEENT: PERRL EOMI Neck: Supple with full range of motion. Lungs: Clear to auscultation bilaterally no crackles rales or wheezing Heart:: Regular rhythm and rate. No overt murmur appreciated Abdomen: Soft , nontender, nondistended No guarding no rebound tenderness , No CVA tenderness Extremities: no edema no cyanosis Results Result Diagram: 07/07/17 0546 07/07/17 0546 Results 24 hrs Laboratory Tests Test 07/06/17 22:48 07/07/17 05:46 07/07/17 07:41 07/07/17 11:50 Bedside Glucose 250 H 227 H 318 H White Blood Count 7.7 Red Blood Count 4.39 Hemoglobin 12.1 Hematocrit 36.6 L Mean Corpuscular Volume 83.4 Mean Corpuscular Hemoglobin 27.6 L Mean Corpuscular Hemoglobin Concent 33.1 Red Cell Distribution Width 12.3 Platelet Count 240 Mean Platelet Volume 9.9 Neutrophils % 71.7 Lymphocytes % 16.6 Monocytes % 8.5 Eosinophils % 1.6 Basophils % 0.7 Nucleated Red Blood Cells % 0.0 Neutrophils # (Manual) 5.5 Lymphocytes # 1.3 Monocytes # 0.7 Eosinophils # 0.1 Basophils # 0.1 Nucleated Red Blood Cells # 0.0 Sodium Level 135 Potassium Level 4.7 Chloride Level 102 Carbon Dioxide Level 27 Anion Gap 11 Blood Urea Nitrogen 25 H Creatinine 0.77 Glucose Level 238 H Calcium Level 10.0 Phosphorus Level 3.7 Magnesium Level 1.8 Albumin 3.6 Test 07/07/17 17:11 Bedside Glucose 236 H Medications Medications Current Medications Ondansetron HCl (Zofran Inj) 4 mg Q6H PRN IV NAUSEA AND/OR VOMITING; Start 07/03 at 23:00 Acetaminophen (Tylenol Tab) 650 mg Q6H PRN PO PAIN LEVEL 1-3 OR FEVER; Start at 23:00 Docusate Sodium (Colace) 100 mg Q12H PRN PO CONSTIPATION; Start 07/03/17 at 23: 00 Bisacodyl (Dulcolax) 5 mg DAILY PRN PO CONSTIPATION; Start 07/03/17 at 23:00 Famotidine (Pepcid) 20 mg Q12 PO Last administered on 07/07/17t 08:07; Admin Dose 20 MG; Start 07/03/17 at 23:00 Losartan Potassium (Cozaar) 50 mg HS PRN PO SBP ABOVE 140mmHg; Start 07/06/17 at 21:30 Diagnostic Test (Pha) (Accu-Chek) 1 ea 02 XX ; Start 07/04/17 at 02:00 Miscellaneous Information 1 ea NOTE XX ; Start 07/04/17 at 08:30 Glucose (Glutose) 15 gm Q15M PRN PO DECREASED GLUCOSE; Start 07/04/17 at 08:30 Glucose (Glutose) 22.5 gm Q15M PRN PO DECREASED GLUCOSE; Start 07/04/17 at 08:30 Dextrose (D50w Syringe) 25 ml Q15M PRN IV DECREASED GLUCOSE; Start 07/04/17 at 08:30 Dextrose (D50w Syringe) 50 ml Q15M PRN IV DECREASED GLUCOSE; Start 07/04/17 at 08:30 Glucagon (Glucagen) 1 mg Q15M PRN IM DECREASED GLUCOSE; Start 07/04/17 at 08:30 Glucose (Glutose) 15 gm Q15M PRN BUCCAL DECREASED GLUCOSE; Start 07/04/17 at 08: 30 Cephalexin (Keflex) 500 mg BID PO Last administered on 07/07/17 08:07; Admin Dose 500 MG; Start 07/06/17 at 21:00 Lactobacillus Acidophilus/ Rhamnosus (Culturelle) 1 cap BID PO Last administered on 07/07/17 08:07; Admin Dose 1 CAP; Start 07/06/17 at 21:00 Losartan Potassium (Cozaar) 50 mg DAILY PO Last administered on 07/07/17 08:10 ; Admin Dose 50 MG; Start 07/07/17 at 09:00 DONAVAN OLSEN MD Jul 07, 2017 18:24
[2017-07-07 20:00] VITALS: BP 137/73; RESP 17
[2017-07-08 02:00] VITALS: BP 128/79; RESP 17
[2017-07-08] MEDS: ACCU-CHEK XX SCH (02:00)
[2017-07-08 07:49] VITALS: BP 151/73; RESP 16
[2017-07-08] MEDS: CEPHALEXIN 500 MG CAP PO SCH (08:39)
[2017-07-08] MEDS: FAMOTIDINE 20 MG TAB PO SCH (08:42)
[2017-07-08] MEDS: LACTOBACILLUS RHAMNOSUS CAP PO SCH (08:43)
[2017-07-08] MEDS: LOSARTAN 50 MG TAB PO SCH (08:51)
[2017-07-08] MEDS: INSULIN ASPART [NOVOLOG] 3 ML PEN SC SCH ×2 (09:02→12:08)
--- NOTE | 2017-07-08 12:46 | PN ---
Date/Time of Note Date/Time of Note DATE: 07/08/17 TIME: 12:41 Assessment/Plan VTE Prophylaxis VTE Prophylaxis Intervention: ambulation Lines/Catheters IV [facility] Saline Lock Urinary Cath still in place: No Assessment/Plan Chief Complaint/Hosp Course 77-year-old female with recurrent urinary tract infection and kidney stones. Presently she does have left upper ureteral stone with left hydronephrosis. she complains more of pain in the suprapubic area and in the urethra from having dysuria and much less from her left kidney. She does have a history of bladder lift with a mesh and that is hurting her and she has seen other urologists in the past because of that. Presently she feels better. The treatment for the stones would be better done by a urologist who can communicate with her and her language [place], she may need a JJ stent ureteroscopy and also extracorporeal shockwave lithotripsy to the left upper ureteral and renal stones. I understand she already has her own urologist and she could follow-up with him Problems: Subjective 24 Hr Interval Summary Constitutional: no complaints, other (States she feels better) Eyes: no complaints ENT: no complaints Respiratory: No cough, No shortness of breath Cardiovascular: No chest pain Gastrointestinal: no complaints Genitourinary: No dysuria Skin: no complaints Exam/Review of Systems Vital Signs Vitals Vital Signs Date Time Temp Pulse Resp B/P Pulse Ox O2 Delivery O2 Flow Rate FiO2 07/08/17 07:49 98.3 81 16 151/73 94 Intake and Output 07/07/17 07/07/17 07/08/17 15:00 23:00 07:00 Intake Total 540 ml 325 ml Balance 540 ml 325 ml Exam Constitutional: alert Head: normocephalic Eyes: nl conjunctiva ENMT: nl external ears & nose Neck: supple Respiratory: normal air movement Gastrointestinal: soft, No tender Genitourinary - Female: other (Urine clear) Extremities: No calf tenderness, No edema Results Result Diagram: 07/07/17 0546 07/07/17 0546 Results 24 hrs Laboratory Tests Test 07/07/17 17:11 07/07/17 21:24 07/08/17 08:11 07/08/17 11:55 Bedside Glucose 236 H 234 H 248 H 286 H Medications Medications Current Medications Ondansetron HCl (Zofran Inj) 4 mg Q6H PRN IV NAUSEA AND/OR VOMITING; Start 07/03 at 23:00 Acetaminophen (Tylenol Tab) 650 mg Q6H PRN PO PAIN LEVEL 1-3 OR FEVER; Start at 23:00 Docusate Sodium (Colace) 100 mg Q12H PRN PO CONSTIPATION; Start 07/03/17 at 23: 00 Bisacodyl (Dulcolax) 5 mg DAILY PRN PO CONSTIPATION; Start 07/03/17 at 23:00 Famotidine (Pepcid) 20 mg Q12 PO Last administered on 07/08/17 08:42; Admin Dose 20 MG; Start 07/03/17 at 23:00 Losartan Potassium (Cozaar) 50 mg HS PRN PO SBP ABOVE 140mmHg; Start 07/06/17 at 21:30 Diagnostic Test (Pha) (Accu-Chek) 1 ea 02 XX ; Start 07/04/17 at 02:00 Miscellaneous Information 1 ea NOTE XX ; Start 07/04/17 at 08:30 Glucose (Glutose) 15 gm Q15M PRN PO DECREASED GLUCOSE; Start 07/04/17 at 08:30 Glucose (Glutose) 22.5 gm Q15M PRN PO DECREASED GLUCOSE; Start 07/04/17 at 08:30 Dextrose (D50w Syringe) 25 ml Q15M PRN IV DECREASED GLUCOSE; Start 07/04/17 at 08:30 Dextrose (D50w Syringe) 50 ml Q15M PRN IV DECREASED GLUCOSE; Start 07/04/17 at 08:30 Glucagon (Glucagen) 1 mg Q15M PRN IM DECREASED GLUCOSE; Start 07/04/17 at 08:30 Glucose (Glutose) 15 gm Q15M PRN BUCCAL DECREASED GLUCOSE; Start 07/04/17 at 08: 30 Cephalexin (Keflex) 500 mg BID PO Last administered on 07/08/17 08:39; Admin Dose 500 MG; Start 07/06/17 at 21:00 Lactobacillus Acidophilus/ Rhamnosus (Culturelle) 1 cap BID PO Last administered on 07/08/17 08:43; Admin Dose 1 CAP; Start 07/06/17 at 21:00 Losartan Potassium (Cozaar) 50 mg DAILY PO Last administered on 9/11/17at 08:51 ; Admin Dose 50 MG; Start 07/07/17 at 09:00 MARTINEZ KRAUS MD Jul 08, 2017 12:46
[2017-07-08] MEDS ORDERED: CEPH500C PO (13:13)
--- NOTE | 2017-07-08 13:24 | DS ---
Date/Time of Note Date/Time of Note DATE: 07/08/17 TIME: 13:14 Discharge Summary Admission/Discharge Info Admit Date/Time Jul 03, 2017 at 22:55 Discharge Date/Time Discharge Diagnosis 1. Complicated UTI with Klebsiella and sensitive to cephalosporins, improving, on keflex 2. Nephrolithiasis, follow up with urology 3. . Diabetes mellitus, stable, follow up with PCP 4. CAD, stable. continue on Plavix 5. HTN, stable. continue on current medication Patient Condition: Stable Hx of Present Illness Hospital Course 77-year-old female with recurrent urinary tract infection and kidney stones. she was diagnosed with UTI 8 days ago and treated with Levaquin who presents with ongoing dysuria during this time. She states that her symptoms did not improve at all despite treatment. She denies fever, back pain, vomiting. She denies vaginal discharge.She reports having a history of chronic cystitis for the last 25 years. she is found of having left upper ureteral stone with left hydronephrosis. she complains more of pain in the suprapubic area and in the urethra from having dysuria and much less from her left kidney. She does have a history of bladder lift with a mesh and that is hurting her and she has seen other urologists in the past because of that. UA with WBC >182. Urine culture positive with KLEBSIELLA PNEUMONIAE That is resistant to levaquin. Patient is treated with cefepime that keflex. She is discharged with keflex and instructed to follow up with PCP and urology. Case discussed with inpatient urologist here in hospital. The treatment for the stones would be better done by a urologist who can communicate with her and her language Moroccan, she may need a JJ stent ureteroscopy and also extracorporeal shockwave lithotripsy to the left upper ureteral and renal stones. I understand she already has her own urologist and she could follow-up with him Home Meds Active Scripts Cephalexin* (Cephalexin*) 500 Mg Capsule, 500 MG PO Q6, #28 CAP Prov:LYSSA RAYMUNDO MD 07/08/17 Reported Medications Olmesartan Medoxomil (Benicar) 20 Mg Tablet, 20 MG PO BID Y for NEEDED, #30 TAB 07/03/17 Metformin Hcl* (Metformin Hcl*) 1,000 Mg Tablet, 1000 MG PO BID, TAB 08/27/15 Glyburide* (Glyburide*) 5 Mg Tablet, 10 MG PO BID, TAB 08/27/15 Clopidogrel Bisulfate (Clopidogrel) 75 Mg Tablet, 75 MG PO DAILY, TAB 08/27/15 Discontinued Reported Medications Olmesartan Medoxomil (Benicar) 5 Mg Tablet, 10 MG PO DAILY, TAB 08/27/15 Carvedilol* (Carvedilol*) 3.125 Mg Tablet, 3.125 MG PO BID, TAB 08/27/15 Discontinued Scripts Diphenhydramine Hcl* (Benadryl*) 25 Mg Cap, 25 MG PO Q6 Y for ALLERGIC REACTION , #10 TAB Prov:KRISTELSARA DO 01/06/16 Prednisone* (Prednisone*) 20 Mg Tab, 60 MG PO DAILY for 4 Days, TAB Prov:SARA HUMPHRIES DO 01/06/16 Famotidine* (Pepcid*) 20 Mg Tablet, 20 MG PO BID for 4 Days, TAB Prov:SARA HUMPHRIES DO 01/06/16 Acetaminophen* (Tylophen*) 500 Mg Capsule, 2 CAP PO Q8H Y for PAIN AND OR ELEVATED TEMP, #20 CAP Prov:NICK REAGAN 08/27/15 Hydrocodone Bit-Acetaminophen* (Haslet*) 5-325 Mg Tab, 1 TAB PO Q6 Y for PAIN, # 7 TAB Prov:NICK REAGAN 08/27/15 Ondansetron Hcl* (Zofran* ODT) 4 mg -ODT Tab.disper, 4 MG PO Q6 Y for NAUSEA AND /OR VOMITING, #10 TAB Prov:NICK REAGAN 08/27/15 Follow-up Plan PCP and urology in one week Primary Care Provider Pee Guerra Pending Labs Laboratory Tests Test 07/07/17 17:11 07/07/17 21:24 07/08/17 08:11 07/08/17 11:55 Bedside Glucose 236mg/dL (70-220) 234mg/dL (70-220) 248mg/dL (70-220) 286mg/dL (70-220) LYSSA RAYMUNDO MD Jul 08, 2017 13:24
== END 2017-07-08 14:08 | disposition home or self-care (01) | DRG 690 ==
LOC: E/R 16:08 → PP2 20:56 → OBSVTOIN 22:55
PROVIDERS: ADMIT Family Medicine; ATTEND Family Medicine
DX: N39.0 Urinary tract infection, site not specified (principal); B96.1 Klebsiella pneumoniae [K. pneumoniae] as the cause of diseases classified elsewhere; N13.2 Hydronephrosis with renal and ureteral calculous obstruction; E11.9 Type 2 diabetes mellitus without complications; I10 Essential (primary) hypertension; I25.10 Atherosclerotic heart disease of native coronary artery without angina pectoris; Z79.84 Long term (current) use of oral hypoglycemic drugs; Z95.5 Presence of coronary angioplasty implant and graft
CPT/HCPCS: 74000; 80048; 80053; 80061; 80069; 81001; 82962; 83036; 83735; 84100; 84443; 85025; 87086; 96372; 96374; G0378; J0692; J0696; J1815

== ENCOUNTER 2019-01-05 12:08 | Observation (INO) | payer MEDICARE, OTHER ==
[~2019-01-05] VITALS: Ht 162.6 cm; Wt 61.5 kg
[~2019-01-05 12:08] MED LIST changes: -ACET500C5 PO; -BEN25 PO; -CARV3.1260 PO; +CEPH500C PO; -FAMO-96 PO; -HYDR-3498 PO; -METF1000 PO; +METF100010 PO; +OLME20TA20 PO; -OLME5TAB4 PO; -ONDA4TAB35 PO; -PRED20TA PO
--- NOTE | 2019-01-05 12:26 | ERD ---
ER Documentation Chief Complaint Chief Complaint BIB RA81 from home: diff swallowing x1mo HPI The patient is a 78-year-old female, presenting to the ER because of difficulty swallowing for more than a month, complains of weight loss, complains of diarrhea for 1 day. She denies fever, chills, neck pain, chest pain, dyspnea, abdominal pain, vomiting, dysuria. She does not smoke nor drink Past medical history: Hypertension, diabetes mellitus, CAD, nephrolithiasis, history of CVA about 2 months ago. She denies any history of atrial fibrillation Past surgical history: Stent PCI ROS All systems reviewed and are negative except as per history of present illness. Medications Home Meds Reported Medications Insulin Glargine,Hum.rec.anlog (Basaglar Kwikpen U-100) 100 Unit/1 Ml Insuln.pen, 15 UNIT SC DAILY, EA 01/05/19 Glimepiride* (Glimepiride*) 4 Mg Tablet, 4 MG PO WITH BREAKFAST, TAB 01/05/19 Levofloxacin* (Levofloxacin*) 500 Mg Tablet, 500 MG PO DAILY, TAB 01/05/19 Olmesartan/Hydrochlorothiazide (Olmesartan-Hctz 40-12.5 mg Tab) 1 Each Tablet, 1 TAB PO DAILY, TAB 01/05/19 Diltiazem Hcl* (Cardizem CD*) 120 Mg Cap.sr.24h, 120 MG PO DAILY, #30 CAP 01/05/19 Aspirin* (Aspirin* EC) 81 Mg Tablet.dr, 1 TAB ORAL DAILY 01/05/19 Clopidogrel Bisulfate (Clopidogrel) 75 Mg Tablet, 75 MG PO DAILY, TAB 08/27/15 Discontinued Reported Medications Olmesartan Medoxomil (Benicar) 20 Mg Tablet, 20 MG PO BID PRN for NEEDED, #30 TAB 07/03/17 Metformin Hcl* (Metformin Hcl*) 1,000 Mg Tablet, 1000 MG PO BID, TAB 08/27/15 Glyburide* (Glyburide*) 5 Mg Tablet, 10 MG PO BID, TAB 08/27/15 Discontinued Scripts Cephalexin* (Cephalexin*) 500 Mg Capsule, 500 MG PO Q6, #28 CAP Prov:LYSSA RAYMUNDO MD 07/08/17 Allergies Allergies: Coded Allergies: No Known Drug Allergies (Verified Allergy, Mild, 01/05/19) PMhx/Soc History of Surgery: Yes (16 cardiac stents) Anesthesia Reaction: No Hx Respiratory Disorders: No Hx Cardiac Disorders: Yes (cholesterol) Hx Psychiatric Problems: No Hx Miscellaneous Medical Probl: Yes (DM) Hx Alcohol Use: No Hx Substance Use: No Hx Tobacco Use: No Smoking Status: Never smoker Physical Exam Vitals Vital Signs Date Temp Pulse Resp B/P (MAP) Pulse Ox O2 O2 Flow FiO2 Time Delivery Rate 01/05/19 90 19 129/94 99 Room Air 16:27 (106) 01/05/19 97.7 77 22 121/68 98 12:21 (85) Physical Exam Const: No acute distress. Head: Atraumatic. Eyes: Normal Conjunctiva. ENT: Normal External Ears, Nose and Mouth. Neck: Full range of motion. No meningismus. Resp: Clear to auscultation bilaterally. Cardio: Irregularly irregular. Abd: Soft, non distended, normal bowel sounds, non tender. Skin: No petechiae or rashes. Back: No midline or flank tenderness. Ext: No cyanosis, or edema. Neur: Awake and alert. No focal deficit Psych: Normal Mood and Affect. Result Diagram: 01/05/19 1315 01/05/19 1315 Results 24 hrs Laboratory Tests Test 01/05/19 13:15 01/05/19 13:48 White Blood Count 10.4 10^3/ul Red Blood Count 4.72 10^6/ul Hemoglobin 12.8 g/dl Hematocrit 40.0 % Mean Corpuscular Volume 84.7 fl Mean Corpuscular Hemoglobin 27.1 pg Mean Corpuscular Hemoglobin Concent 32.0 g/dl Red Cell Distribution Width 14.3 % Platelet Count 316 10^3/UL Mean Platelet Volume 9.5 fl Immature Granulocytes % 0.800 % Neutrophils % 83.9 % Lymphocytes % 9.1 % Monocytes % 5.4 % Eosinophils % 0.6 % Basophils % 0.2 % Nucleated Red Blood Cells % 0.0 /100WBC Immature Granulocytes # 0.080 10^3/ul Neutrophils # 8.7 10^3/ul Lymphocytes # 0.9 10^3/ul Monocytes # 0.6 10^3/ul Eosinophils # 0.1 10^3/ul Basophils # 0.0 10^3/ul Nucleated Red Blood Cells # 0.0 10^3/ul Sodium Level 140 mmol/L Potassium Level 4.2 mmol/L Chloride Level 96 mmol/L Carbon Dioxide Level 31 mmol/L Anion Gap 13 Blood Urea Nitrogen 22 mg/dl Creatinine 0.88 mg/dl Est Glomerular Filtrat Rate mL/min mL/min Glucose Level 118 mg/dl Calcium Level 10.5 mg/dl Total Bilirubin 0.5 mg/dl Direct Bilirubin 0.00 mg/dl Indirect Bilirubin 0.5 mg/dl Aspartate Amino Transf (AST/SGOT) 24 IU/L Alanine Aminotransferase (ALT/SGPT) 20 IU/L Alkaline Phosphatase 91 IU/L Total Protein 7.6 g/dl Albumin 4.4 g/dl Globulin 3.20 g/dl Albumin/Globulin Ratio 1.37 Lipase 24 U/L Bedside Urine pH (LAB) 5.5 Bedside Urine Protein (LAB) Negative Bedside Urine Glucose (UA) Negative Bedside Urine Ketones (LAB) 1+ Bedside Urine Blood Trace-intact Bedside Urine Nitrite (LAB) Negative Bedside Urine Leukocyte Esterase (L Negative Current Medications Medications Dose Sig/Lesvia Start Time Status Last (Trade) Ordered Route PRN Stop Time Admin Dose Reason Admin Sodium 500 ml @ Q1H ONCE 01/05/19 DC 01/05/19 Chloride 500 mls/hr IV 14:00 14:29 01/05/19 14:59 Diltiazem 120 mg DAILY PO 01/06/19 HCl 09:00 (Cardizem Cd) 20 mg HS PO 01/05/19 Atorvastatin 21:00 Calcium (Lipitor) Aspirin 81 mg DAILY PO 01/06/19 (Aspirin) 09:00 Procedures/MDM EKG: At 1 PM read by emergency physician Rate/Rhythm: Atrial fibrillation 92 beats/min QRS, ST, T-waves: No ST elevation, LVH, nonspecific ST and T abnormality Impression: Abnormal EKG EKG: At 2:23 PM read by emergency physician Rate/Rhythm: Atrial fibrillation 89 beats/min QRS, ST, T-waves: No ST elevation, nonspecific ST and T abnormality Impression: Abnormal EKG MEDICAL MAKING DECISION: The patient is a 78-year-old female, presenting with probable acute new onset atrial fibrillation, however the heart rate is normal I suspect that she might have a history of chronic atrial fibrillation that she is not aware of, acute dehydration, acute dysphagia. She was treated with 500 mL normal saline for acute dehydration with good response The differential diagnoses considered include but are not limited to achalasia, GERD, esophagitis, malignancy cholelithiasis, cholecystitis, choledocholith iasis, cholangitis, pancreatitis, hepatitis, gastritis, peptic ulcer disease, gastric ulcer, appendicitis, cystitis, diverticulitis, partial small bowel obstruction. Departure Diagnosis: Primary Impression: Atrial fibrillation Additional Impressions: Atrial fibrillation with normal ventricular rate Dysphagia Dehydration Condition: Stable Comments I discussed the findings with the patient. I discussed the patient with the hospitalist Dr Vasquez at 3:25 pm . who was made aware of the lab, the treatment, the patient condition. The patient is admitted to Tel Disclaimer: Inadvertent spelling and grammatical errors are likely due to EHR/dictation software use and do not reflect on the overall quality of patient care. Also, please note that the electronic time recorded on this note does not necessarily reflect the actual time of the patient encounter. FARIDEH DE LEÓN MD Jan 05, 2019 12:26
[2019-01-05] MEDS ORDERED: SOD CHLORIDE 0.9% 500 ML IV ONE (14:00)
[2019-01-05] MEDS ORDERED: INSU100I33 SC (14:05)
[2019-01-05] MEDS ORDERED: LEVO500T10 PO (14:05)
[2019-01-05] MEDS ORDERED: ASPI-817 ORAL (14:05)
[2019-01-05] MEDS ORDERED: OLME1TAB83 PO (14:05)
[2019-01-05] MEDS ORDERED: GLIM4TAB PO (14:05)
[2019-01-05] MEDS ORDERED: DILT120C77 PO (14:05)
--- NOTE | 2019-01-05 17:09 | CONS ---
Assessment/Plan Assessment/Plan Hospital Course (Demo Recall) Weakness, difficulty swallowing Atrial fibrillation CAD History of congestive heart failure Hypertension History of CVA -Patient with atrial fibrillation. Last ECG in our system is 2013, at that time, patient with atrial fibrillation. This is unlikely new in onset. Of note, medications reviewed, patient on aspirin and Plavix and Cardizem but no anticoagulant -Patient thought she had a stroke 1 month ago, but she does tell me she was in the hospital for stroke a few years ago. Given her multiple risk factors, patient ideally should be on an anticoagulant. She denies any bleeding. Would obtain CT head. If negative, would recommend start anticoagulant. Patient tells me her last cardiac stent was placed over 4 years ago. If anticoagulant is being started, we could stop the Plavix. -Otherwise further weakness and difficulty swallowing workup as per primary team. Consultation Date/Type/Reason Admit Date/Time Type of Consult Cardiology Reason for Consultation Atrial fibrillation Date/Time of Note DATE: 01/05/19 TIME: 17:00 Hx of Present Illness This is a 78-year-old female who presents emergency room with multiple complaints. She complains of fatigue and tiredness over the past few weeks. She complains of difficulty with swallowing. She feels she can swallow liquids but has a hard time with solids. Also complains of visual disturbances. She denies any palpitations, chest pain or shortness of breath. She thinks she had a stroke 1 month ago when she had difficulty speaking, swallowing and trouble with her vision. She did not see a physician when discussing with her neighbors, she assumed she had a stroke. Since in the emergency room, she is feeling better but still with weakness and swallowing difficulty. 12 point review of systems was performed with all pertinent positives and negatives mentioned above and all else is negative Past Medical History Medical History: congestive heart failure, coronary artery disease, hypertension Home Meds Reported Medications Insulin Glargine,Hum.rec.anlog (Basaglar Kwikpen U-100) 100 Unit/1 Ml Insuln.pen, 15 UNIT SC DAILY, EA 01/05/19 Glimepiride* (Glimepiride*) 4 Mg Tablet, 4 MG PO WITH BREAKFAST, TAB 01/05/19 Levofloxacin* (Levofloxacin*) 500 Mg Tablet, 500 MG PO DAILY, TAB 01/05/19 Olmesartan/Hydrochlorothiazide (Olmesartan-Hctz 40-12.5 mg Tab) 1 Each Tablet, 1 TAB PO DAILY, TAB 01/05/19 Diltiazem Hcl* (Cardizem CD*) 120 Mg Cap.sr.24h, 120 MG PO DAILY, #30 CAP 01/05/19 Aspirin* (Aspirin* EC) 81 Mg Tablet.dr, 1 TAB ORAL DAILY 01/05/19 Clopidogrel Bisulfate (Clopidogrel) 75 Mg Tablet, 75 MG PO DAILY, TAB 08/27/15 Discontinued Reported Medications Olmesartan Medoxomil (Benicar) 20 Mg Tablet, 20 MG PO BID PRN for NEEDED, #30 TAB 07/03/17 Metformin Hcl* (Metformin Hcl*) 1,000 Mg Tablet, 1000 MG PO BID, TAB 08/27/15 Glyburide* (Glyburide*) 5 Mg Tablet, 10 MG PO BID, TAB 08/27/15 Discontinued Scripts Cephalexin* (Cephalexin*) 500 Mg Capsule, 500 MG PO Q6, #28 CAP Prov:LYSSA RAYMUNDO MD 07/08/17 Allergies: Coded Allergies: No Known Drug Allergies (Verified Allergy, Mild, 01/05/19) Past Surgical History Past Surgical Hx: angioplasty, other Family History Significant Family History: no pertinent family hx Social History Smoking Status: Never smoker Exam/Review of Systems Vital Signs Vitals Vital Signs Date Temp Pulse Resp B/P (MAP) Pulse Ox O2 O2 Flow FiO2 Time Delivery Rate 01/05/19 90 19 129/94 99 Room Air 16:27 (106) 01/05/19 97.7 12:21 Exam Constitutional: alert, oriented (Person and place, difficulty with distant history, no apparent distress) Head: normocephalic Respiratory: clear to auscultation, normal air movement Cardiovascular: irregular rhythm (S1-S2 heard) Gastrointestinal: soft, non-tender, bowel sounds Extremities: other (No significant edema) Labs Result Diagram: 01/05/19 1315 01/05/19 1315 Results 24hrs Laboratory Tests Test 01/05/19 13:15 01/05/19 13:48 White Blood Count 10.4 # Red Blood Count 4.72 Hemoglobin 12.8 Hematocrit 40.0 Mean Corpuscular Volume 84.7 Mean Corpuscular Hemoglobin 27.1 L Mean Corpuscular Hemoglobin Concent 32.0 Red Cell Distribution Width 14.3 Platelet Count 316 # Mean Platelet Volume 9.5 Immature Granulocytes % 0.800 H Neutrophils % 83.9 H Lymphocytes % 9.1 L Monocytes % 5.4 Eosinophils % 0.6 Basophils % 0.2 Nucleated Red Blood Cells % 0.0 Immature Granulocytes # 0.080 H Neutrophils # 8.7 H Lymphocytes # 0.9 Monocytes # 0.6 Eosinophils # 0.1 Basophils # 0.0 Nucleated Red Blood Cells # 0.0 Sodium Level 140 Potassium Level 4.2 Chloride Level 96 L Carbon Dioxide Level 31 Anion Gap 13 Blood Urea Nitrogen 22 H Creatinine 0.88 Est Glomerular Filtrat Rate mL/min Glucose Level 118 Calcium Level 10.5 H Total Bilirubin 0.5 Direct Bilirubin 0.00 Indirect Bilirubin 0.5 Aspartate Amino Transf (AST/SGOT) 24 Alanine Aminotransferase (ALT/SGPT) 20 Alkaline Phosphatase 91 Total Protein 7.6 Albumin 4.4 Globulin 3.20 Albumin/Globulin Ratio 1.37 Lipase 24 Bedside Urine pH (LAB) 5.5 Bedside Urine Protein (LAB) Negative Bedside Urine Glucose (UA) Negative Bedside Urine Ketones (LAB) 1+ H Bedside Urine Blood Trace-intact H Bedside Urine Nitrite (LAB) Negative Bedside Urine Leukocyte Esterase (L Negative Imaging Imaging ECG with atrial fibrillation at 92 bpm, QRS 74 ms, nonspecific ST abnormalities Aneudy Gray DO Jan 05, 2019 17:09
[2019-01-05] MEDS ORDERED: NACL 0.9% 3 ML SYG IV SCH (18:30)
[2019-01-05] MEDS ORDERED: ZOLPIDEM 5 MG TAB PO PRN (18:30)
[2019-01-05] MEDS ORDERED: ONDANSETRON 4 MG INJ IV PRN (18:30)
[2019-01-05] MEDS ORDERED: ACETAMINOPHEN 325 MG TAB PO PRN (18:30)
[2019-01-05 19:39] VITALS: PULSE 89
[2019-01-05 20:00] VITALS: PULSE 83
[2019-01-05] MEDS ORDERED: DEXTROSE 50% 50 ML SYRINGE IV PRN ×2 (20:00)
[2019-01-05] MEDS ORDERED: GLUCOSE GEL 15 GRAM TUBE PO PRN ×2 (20:00)
[2019-01-05] MEDS ORDERED: GLUCOSE GEL 15 GRAM TUBE BUCCAL PRN (20:00)
[2019-01-05] MEDS ORDERED: GLUCAGON 1 MG INJ IM PRN (20:00)
[2019-01-05 20:05] VITALS: Ht 162.6 cm; Wt 61.5 kg
[2019-01-05 20:13] VITALS: BP 127/73; PULSE 87; RESP 18
[2019-01-05] MEDS: ATORVASTATIN 20 MG TAB PO SCH (21:00)
[2019-01-05] MEDS: ACCU-CHEK XX SCH (21:08)
[2019-01-05] MEDS: APIXABAN 5 MG TABLET PO SCH (21:27)
[2019-01-06] VITALS (13 sets, daily range): BP systolic 133–155; BP diastolic 63–75; PULSE 76–94; RESP 16–20
[2019-01-06] MEDS: PANTOPRAZOLE (EC) 40 MG TAB PO SCH (05:42)
[2019-01-06] MEDS: ACCU-CHEK XX SCH ×4 (08:19→21:00)
[2019-01-06] MEDS ORDERED: DILTIAZEM (CD) 120 MG CAP PO SCH ×2 (09:00)
[2019-01-06] MEDS: GLIMEPIRIDE 4 MG TAB PO SCH (09:10)
[2019-01-06] MEDS: ASPIRIN 81 MG TAB PO SCH (09:10)
[2019-01-06] MEDS: APIXABAN 5 MG TABLET PO SCH ×2 (09:10→21:00)
[2019-01-06] MEDS ORDERED: PANT40TA4 PO (09:17)
[2019-01-06] MEDS ORDERED: APIX5TAB PO (09:17)
[2019-01-06] MEDS: INSULIN GLARGINE [LANtus] 3 ML PEN SC SCH (09:27)
--- NOTE | 2019-01-06 10:32 | PDOCDIS ---
Discharge Instructions CONDITION [id number] Patient Condition: [id number] Good HOME CARE INSTRUCTIONS: [id number] Diet Instructions: [id number] Activity Restrictions: [id number] Slowly Increase Activity FOLLOW UP/APPOINTMENTS Follow-up Plan pcp [address] Gray 1 week PARK HERNANDEZ MD Jan 06, 2019 10:32
[2019-01-06] MEDS ORDERED: MECL-77 PO (10:44)
--- NOTE | 2019-01-06 11:09 | HP ---
DATE OF ADMISSION: 01/05/2019 CHIEF COMPLAINT: Generalized weakness and dizziness. HISTORY OF PRESENT ILLNESS: This is a 78-year-old Barbadian speaking female with a history of atrial fibrillation, hypertension, type 2 diabetes mellitus, presented to emergency room with complaint of g eneralized weakness and dizziness. The patient reports vertigo. She denies any focal weakness or nu mbness in the extremities. No speech difficulty. However, according to her daughter, she has had pr oblem with swallowing over the last 1 month prior to admission. CAT scan of the brain was unremarkab le. The EKG in 2013 showed atrial fibrillation. The patient denied any chest pain or shortness of b reath. PAST MEDICAL HISTORY: 1. Chronic atrial fibrillation. 2. Type 2 diabetes mellitus. 3. Hypertension. 4. Coronary artery disease status post stent placement 4 years prior to admission. MEDICATIONS PRIOR TO ADMISSION: 1. Insulin. 2. Glimepiride. 3. Olmesartan. 4. Hydrochlorothiazide. 5. Diltiazem. 6. Aspirin. 7. Plavix. SOCIAL HISTORY: The patient lives at home. She denies tobacco or alcohol use. PHYSICAL EXAMINATION: GENERAL: Well-developed, well-nourished female who is in no apparent distress. VITAL SIGNS: Stable. She is afebrile. HEENT: Extraocular muscles intact. Pupils equal and reactive to light bilaterally. Sclerae are ani cteric. Oropharynx is clear and moist. NECK: Supple, no JVD, no carotid bruits. LUNGS: Clear to auscultation bilaterally. CARDIAC: Irregularly irregular. No murmurs or gallops. ABDOMEN: Soft, nontender, nondistended, normoactive bowel sounds. EXTREMITIES: No clubbing, cyanosis, or edema. NEUROLOGIC: Cranial nerves II through XII are intact. There is mild horizontal nystagmus. Motor an d sensory are intact in all extremities. LABORATORY DATA: White blood cell count 10.4, hemoglobin 12.8, platelets 316,000. Basic metabolic p chela is within normal limits. Hemoglobin A1c was 7.3. ASSESSMENT: 1. A 78-year-old female with complaint of dizziness. Symptoms are consistent with benign positional vertigo. 2. Chronic atrial fibrillation, rate controlled. 3. Coronary artery disease. 4. Hypertension. 5. Type 2 diabetes mellitus. PLAN: 1. Admit to be placed in telemetry observation. 2. Resume home medications. 3. Start Eliquis 5 mg p.o. b.i.d. 4. Speech therapy evaluation. 5. Cardiology followup is appreciated. Dictated By: PARK ZAMUDIO/MARK Conf#: [id number] DID#: [id number] CC: PARK HERNANDEZ MD;*EndCC*
[2019-01-06] MEDS: MECLIZINE 12.5 MG TAB PO SCH ×4 (15:03→23:01)
--- NOTE | 2019-01-06 15:51 | CONS ---
Assessment/Plan Assessment/Plan Hospital Course (Demo Recall) Weakness, difficulty swallowing Atrial fibrillation CAD History of congestive heart failure Hypertension History of CVA -Patient with atrial fibrillation. Last ECG in our system is 2013, at that time, patient with atrial fibrillation. This is unlikely new in onset. Of note, medications reviewed, patient on aspirin and Plavix and Cardizem but no anticoagulant -Given CT head findings of multiple strokes which appear chronic, patient has been started on anticoagulation. Discussed with the patient and family bedside. I have stopped Plavix. -Patient thinks Cardizem is giving her dizziness. Would stop and start low-dose beta-vianey. -Otherwise further weakness and difficulty swallowing workup as per primary team. Consultation Date/Type/Reason Admit Date/Time Jan 05, 2019 at 15:25 Initial Consult Date Type of Consult Cardiology Date/Time of Note DATE: 01/06/19 TIME: 15:49 24 HR Interval Summary Free Text/Dictation Complains of dizziness since yesterday evening. No shortness of breath, chest pain Exam/Review of Systems Vital Signs Vitals Vital Signs Date Temp Pulse Resp B/P (MAP) Pulse Ox O2 O2 Flow FiO2 Time Delivery Rate 01/06/19 97.9 82 16 155/70 97 15:14 (98) 01/05/19 Room Air 16:27 Intake and Output 01/05/19 01/05/19 01/06/19 1515:00 23:00 07:00 IntakeIntake Total 1000 ml 150 ml OutputOutput Total 500 ml BalanceBalance 500 ml 150 ml Exam Constitutional: alert, oriented (No apparent distress) Respiratory: clear to auscultation, normal air movement Cardiovascular: irregular rhythm (S1-S2 heard) Gastrointestinal: soft, non-tender, bowel sounds Extremities: other (No significant edema) Labs Result Diagram: 01/05/19 1315 01/05/19 1315 Results 24hrs Laboratory Tests Test 01/05/19 21:08 01/06/19 08:13 01/06/19 08:48 01/06/19 11:46 Bedside Glucose 81 108 268 H Hemoglobin A1c 7.3 H Medications Medications Current Medications Atorvastatin Calcium (Lipitor) 20 mg HS PO ; Start 01/05/19 at 21:00 Aspirin (Aspirin) 81 mg DAILY PO Last administered on 01/06/19at 09:10; Admin Dose 81 MG; Start 01/06/19 at 09:00 IV Flush (NS 3 ml) 3 ml PER PROTOCOL IV ; Start 01/05/19 at 18:30 Ondansetron HCl (Zofran Inj) 4 mg Q6H PRN IV NAUSEA/VOMITING Last administered on 01/06/19 09:10; Admin Dose 4 MG; Start 01/05/19 at 18:30 Acetaminophen (Tylenol Tab) 650 mg Q6H PRN PO .PAIN 1-3 OR TEMP Last administered on 01/06/19 09:10; Admin Dose 650 MG; Start 01/05/19 at 18:30 Zolpidem Tartrate (Ambien) 5 mg QHS PRN PO .INSOMNIA; Start 01/05/19 at 18:30 Pantoprazole (Protonix Tab) 40 mg DAILY@06 PO ; Start 01/06/19 at 06:00 Apixaban (Eliquis) 5 mg BID PO Last administered on 01/06/19 09:10; Admin Dose 5 MG; Start 01/05/19 at 21:00 Glimepiride (Amaryl) 4 mg WITH BREAKFAST PO Last administered on 01/06/19 09:10; Admin Dose 4 MG; Start 01/06/19 at 07:55 Insulin Glargine (Lantus) 15 unit DAILY SC Last administered on 01/06/19 09:27; Admin Dose 15 UNIT; Start 01/06/19 at 09:00 Diagnostic Test (Pha) (Accu-Chek) 1 ea AC MEALS AND BEDTIME XX Last administered on 01/06/19at 11:50; Admin Dose 1 EA; Start 01/05/19 at 21:00 Miscellaneous Information 1 ea NOTE XX ; Start 01/05/19 at 20:00 Glucose (Glutose) 15 gm Q15M PRN PO DECREASED GLUCOSE; Start 01/05/19 at 20:00 Glucose (Glutose) 22.5 gm Q15M PRN PO DECREASED GLUCOSE; Start 01/05/19 at 20:00 Dextrose (D50w Syringe) 25 ml Q15M PRN IV DECREASED GLUCOSE; Start 01/05/19 at 20:00 Dextrose (D50w Syringe) 50 ml Q15M PRN IV DECREASED GLUCOSE; Start 01/05/19 at 20:00 Glucagon (Glucagen) 1 mg Q15M PRN IM DECREASED GLUCOSE; Start 01/05/19 at 20:00 Glucose (Glutose) 15 gm Q15M PRN BUCCAL DECREASED GLUCOSE; Start 01/05/19 at 20:00 Influenza Virus Vaccine Quadrival (Fluzone) 0.5 ml ONCE ONCE IM* ; Start 01/07/19 at 10:00; Stop 01/07/19 at 10:01 Meclizine HCl (Antivert) 12.5 mg TID PO Last administered on 01/06/19at 15:03; Admin Dose 12.5 MG; Start 01/06/19 at 13:00 Diagnostic Test (Pha) (Accu-Chek) 1 ea 02 XX ; Start 01/07/19 at 02:00 Insulin Aspart (Novolog Insulin Pen) NOVOLOG *MODERATE* ALGORITHM WITH MEALS B EDTIME SC ; Start 01/06/19 at 17:55 Aneudy Gray DO Jan 06, 2019 15:51
[2019-01-06] MEDS: INSULIN ASPART [NOVOLOG] 3 ML PEN SC SCH ×2 (17:26→22:01)
[2019-01-06] MEDS: ATORVASTATIN 20 MG TAB PO SCH (20:39)
--- NOTE | 2019-01-06 21:46 | RADRPT ---
Echocardiogram Report Patient Name: PARDEEP MARSPatient ID: [id number] : 1940 (78y 11m)Study Date: 01/06/2019 9:09:20 AM Gender: FAccession #: [id number] Tech: Aamir [facility] Location: [id number]- Ref.Physician: ANEUDY GRAY Height(Cm): BSA: Weight(Kg): Quality: AdequateAccount #: Procedures: Echocardiographic Report: Transthoracic echocardiogram with complete 2D, M-Mode, and doppler examination. Indications: Atrial Fibrillation, and Congestive Heart Failure. Measurements: 2D/M Mode Doppler Measurement Value Normal Range Measurement Value Normal Range LVIDd 2D 4.3 [ 3.8 - 5.2 ] cm AV Peak Roman 1.6 [ 100.0 - 170.0 ] cm/sec LVIDs 2D 3.4 [ 2.2 - 3.5 ] cm AV Peak PG 10.0 [ 2.0 - 9.0 ] mmHg LVPWd 2D 1.3 [ 0.6 - 0.9 ] cm LVOT Peak Roman 0.9 [ 70.0 - 110.0 ] cm/sec IVSd 2D 1.6 [ 0.6 - 0.9 ] cm LVOT Peak PG 3.0 [ 2.0 - 6.0 ] mmHg IVS/LVPW 2D 1.3 ratio MV E Peak Roman 0.8 [ 60.0 - 130.0 ] cm/sec AoR Diam 2D 2.9 [ 2.3 - 3.1 ] cm MV A Peak Roman 0.4 [ 100.0 - 120.0 ] cm/sec LA/Ao 2D 1 ratio MV E/A 2.2 [ 0.8 - 1.5 ] ratio LA Dimen 2D 3.6 [ 2.7 - 3.8 ] cm MV Decel Time 162 [ 104 - 258 ] msec Lat E` Roman 0.1 [ 10.0 - 15.0 ] cm/sec Med E` Roman 0.0 cm/sec MV E/A 2.2 [ 0.8 - 1.5 ] ratio TR Peak Roman 2.8 [ 100.0 - 280.0 ] cm/sec TR Peak PG 33.0 mmHg RVSP 41.0 [ 10.0 - 36.0 ] mmHg Findings: Left Ventricle: Normal left ventricular systolic function. Normal left ventricular cavity size. Moderate concentric left ventricular hypertrophy. Ejection fraction is visually estimated at 55 %. Abnormal Diastolic Function. Right Ventricle: Normal right ventricular size. Normal right ventricular systolic function. Left Atrium: The left atrium is normal in size. Right Atrium: There is mild enlargement of right atrium. Mitral Valve: Mild mitral leaflet calcification. Mild mitral annular calcification. Mild mitral valve regurgitation. Aortic Valve: No hemodynamically significant aortic stenosis by doppler. Aortic cusps appear mildly calcified. Mild aortic valve regurgitation. Tricuspid Valve: Normal appearance of the tricuspid valve. Estimated peak PA systolic pressure 41 mmHg. There is mild tricuspid regurgitation. Pulmonic Valve: Normal pulmonic valve appearance. Pericardium: Normal pericardium with no significant pericardial effusion. Aorta: Normal aortic root. IVC: Normal size with poor respiratory collapse consistent with elevated right atrial pressure. Conclusions: Normal left ventricular systolic function. Normal left ventricular cavity size. Moderate concentric left ventricular hypertrophy. Ejection fraction is visually estimated at 55 %. Abnormal Diastolic Function. Normal right ventricular size. Normal right ventricular systolic function. The left atrium is normal in size. There is mild enlargement of right atrium. Mild mitral valve regurgitation. No hemodynamically significant aortic stenosis by doppler. Mild aortic valve regurgitation. Estimated peak PA systolic pressure 41 mmHg. There is mild tricuspid regurgitation. Normal pericardium with no significant pericardial effusion. Electronically Signed By: Aneudy Gray 2019-01-06 21:46:05 PDT
[2019-01-07] VITALS: PULSE 69
[2019-01-07] MEDS ORDERED: ACCU-CHEK XX SCH (02:00)
[2019-01-07 04:00] VITALS: PULSE 97
[2019-01-07 04:16] VITALS: BP 113/59; PULSE 72; RESP 16
[2019-01-07] MEDS: PANTOPRAZOLE (EC) 40 MG TAB PO SCH (05:11)
[2019-01-07 07:38] VITALS: BP 114/75; PULSE 91; RESP 16
[2019-01-07] MEDS: GLIMEPIRIDE 4 MG TAB PO SCH (07:55)
[2019-01-07] MEDS: INSULIN ASPART [NOVOLOG] 3 ML PEN SC SCH ×2 (07:55→12:02)
[2019-01-07] MEDS: ACCU-CHEK XX SCH ×2 (08:06→11:58)
[2019-01-07 08:37] VITALS: PULSE 80
[2019-01-07] MEDS ORDERED: METO-335 PO (08:51)
[2019-01-07] MEDS: INSULIN GLARGINE [LANtus] 3 ML PEN SC SCH (09:00)
[2019-01-07] MEDS: APIXABAN 5 MG TABLET PO SCH (09:00)
[2019-01-07] MEDS ORDERED: METOPROLOL (XL) 25 MG TAB PO SCH (09:00)
[2019-01-07] MEDS: MECLIZINE 12.5 MG TAB PO SCH ×2 (09:00→12:03)
[2019-01-07] MEDS: ASPIRIN 81 MG TAB PO SCH (09:52)
[2019-01-07 11:07] VITALS: BP 138/75; PULSE 91; RESP 16
--- NOTE | 2019-01-07 13:25 | CONS ---
Assessment/Plan Assessment/Plan Hospital Course (Demo Recall) IMP: 1.Dizziness- ? equlibrium/inner ear etiology. Also has some AF with SVR at times. 2.HTN 3. abnl ecg 4. H/O TX 5.H/O ICH 5.AF-rate controlled 6. CVA- by head MRI/CT, possibly new area Recc -Tele -serial ecg's -Spoke with family re cayden roldan do not want it or alternative systemic antic oagulation at this time. Explained to then possible new CVA by head imaging this admit but insistant to remain on plavix and asa and thus will resume -Resume baseline CCB or continue BB for rate control -Contineu statin -Follow volume status clsoely -possible D/C planning with outpatient f/u Consultation Date/Type/Reason Admit Date/Time Jan 05, 2019 at 15:25 Initial Consult Date 01/06/19 Type of Consult Cardiology Reason for Consultation AF Requesting Provider: PARK HERNANDEZ MD Date/Time of Note DATE: 01/07/19 TIME: 13:12 Exam/Review of Systems Vital Signs Vitals Vital Signs Date Temp Pulse Resp B/P (MAP) Pulse Ox O2 O2 Flow FiO2 Time Delivery Rate 01/07/19 98.3 91 16 138/75 97 11:07 (96) 01/05/19 Room Air 16:27 Intake and Output 01/06/19 01/06/19 01/07/19 1515:00 23:00 07:00 IntakeIntake Total 800 ml 200 ml BalanceBalance 800 ml 200 ml Exam Exam Review of Systems: CONSTITUTIONAL: No fevers, chills. PULMONARY: No sob CARDIOVASCULAR: No chest pain/palpitations GASTROINTESTINAL: No nausea/vomiting. GENITOURINARY: No hematuria/dysuria. MUSCULOSKELETAL: No myagias/arthalgias. PSYCHIATRIC: The patient denies depression. NEUROLOGIC: dizziness Constitutional: alert Psych: no complaints Head: normocephalic ENMT: mucosa pink and moist Neck: supple, jvd Respiratory: diminished breath sounds Cardiovascular: regular rate and rhythm Gastrointestinal: soft, non-tender Musculoskeletal: muscle tone Extremities: edema (none) Labs Result Diagram: 01/05/19 1315 01/05/19 1315 Results 24hrs Laboratory Tests Test 01/06/19 17:06 01/06/19 22:00 01/07/19 08:04 01/07/19 11:56 Bedside Glucose 232 H 176 107 283 H Medications Medications Current Medications Atorvastatin Calcium (Lipitor) 20 mg HS PO ; Start 01/05/19 at 21:00 Aspirin (Aspirin) 81 mg DAILY PO Last administered on 01/07/19 09:52; Admin Dose 81 MG; Start 01/06/19 at 09:00 IV Flush (NS 3 ml) 3 ml PER PROTOCOL IV ; Start 01/05/19 at 18:30 Ondansetron HCl (Zofran Inj) 4 mg Q6H PRN IV NAUSEA/VOMITING Last administered on 01/06/19 09:10; Admin Dose 4 MG; Start 01/05/19 at 18:30 Acetaminophen (Tylenol Tab) 650 mg Q6H PRN PO .PAIN 1-3 OR TEMP Last administered on 01/06/19 09:10; Admin Dose 650 MG; Start 01/05/19 at 18:30 Zolpidem Tartrate (Ambien) 5 mg QHS PRN PO .INSOMNIA; Start 01/05/19 at 18:30 Pantoprazole (Protonix Tab) 40 mg DAILY@06 PO ; Start 01/06/19 at 06:00 Apixaban (Eliquis) 5 mg BID PO Last administered on 01/06/19 09:10; Admin Dose 5 MG; Start 01/05/19 at 21:00 Glimepiride (Amaryl) 4 mg WITH BREAKFAST PO Last administered on 01/06/19 09:10; Admin Dose 4 MG; Start 01/06/19 at 07:55 Insulin Glargine (Lantus) 15 unit DAILY SC Last administered on 01/06/19 09:27; Admin Dose 15 UNIT; Start 01/06/19 at 09:00 Diagnostic Test (Pha) (Accu-Chek) 1 ea AC MEALS AND BEDTIME XX Last administered on 01/07/19at 11:58; Admin Dose 1 EA; Start 01/05/19 at 21:00 Miscellaneous Information 1 ea NOTE XX ; Start 01/05/19 at 20:00 Glucose (Glutose) 15 gm Q15M PRN PO DECREASED GLUCOSE; Start 01/05/19 at 20:00 Glucose (Glutose) 22.5 gm Q15M PRN PO DECREASED GLUCOSE; Start 01/05/19 at 20:00 Dextrose (D50w Syringe) 25 ml Q15M PRN IV DECREASED GLUCOSE; Start 01/05/19 at 20:00 Dextrose (D50w Syringe) 50 ml Q15M PRN IV DECREASED GLUCOSE; Start 01/05/19 at 20:00 Glucagon (Glucagen) 1 mg Q15M PRN IM DECREASED GLUCOSE; Start 01/05/19 at 20:00 Glucose (Glutose) 15 gm Q15M PRN BUCCAL DECREASED GLUCOSE; Start 01/05/19 at 20:00 Meclizine HCl (Antivert) 12.5 mg TID PO Last administered on 01/07/19at 12:03; Admin Dose 12.5 MG; Start 01/06/19 at 13:00 Diagnostic Test (Pha) (Accu-Chek) 1 ea 02 XX ; Start 01/07/19 at 02:00 Insulin Aspart (Novolog Insulin Pen) NOVOLOG *MODERATE* ALGORITHM WITH MEALS BEDTIME SC Last administered on 01/07/19at 12:02; Admin Dose 8 UNIT; Start 12/26 12/16 at 17:55 Metoprolol Succinate (Toprol Xl) 25 mg DAILY PO ; Start 01/07/19 at 09:00 JUSTIN FALCON Jan 07, 2019 13:23
--- NOTE | 2019-01-07 18:51 | DS ---
DATE OF ADMISSION: 01/05/2019 DATE OF DISCHARGE: 01/07/2019 DISCHARGE DIAGNOSES: 1. A 78-year-old female with benign positional vertigo. 2. Chronic atrial fibrillation, rate controlled. 3. Coronary artery disease. 4. Hypertension. 5. Type 2 diabetes mellitus. PROCEDURE DURING HOSPITALIZATION: A 2D echo, brain MRI and brain CT. HOSPITAL COURSE: A 78-year-old [place]ican-speaking female with history of chronic atrial fibrillation, hypertension, and type 2 diabetes mellitus who presented to emergency room with complaint of general ized weakness and dizziness. The patient had no complaints of chest pain or shortness of breath. Genny terrazas was found to be in atrial fibrillation. The patient was evaluated by Dr. Gray. Previous EKG fro m several years prior to admission showed atrial fibrillation. Anticoagulation was recommended. The patient complained of vertigo during the hospitalization. A CAT scan of the brain and MRI of the brain were unremarkable. I prescribed meclizine. I had multiple conversations with her daughters. At this point, she is in a stable condition for discharge. The Plavix will be discontinued upon dis charge. MEDICATIONS ON DISCHARGE: 1. Eliquis 5 mg p.o. b.i.d. 2. Metoprolol 25 mg p.o. daily. 3. Protonix 40 mg p.o. daily. 4. Aspirin 81 mg p.o. daily. 5. Diltiazem 120 mg p.o. daily. 6. Glimepiride 4 mg p.o. daily. 7. Olmesartan-hydrochlorothiazide 1 tablet daily. Discontinue Plavix at home. Follow up with PCP in 1 week. Dictated By: PARK ZAMUDIO/MARK Conf#: [id number] DID#: [id number]
== END 2019-01-07 13:46 | disposition home or self-care (01) ==
LOC: E/R 12:08 → TEL 15:25
PROVIDERS: ADMIT Internal Medicine; ATTEND Internal Medicine
DX: H81.10 Benign paroxysmal vertigo, unspecified ear (principal); I48.2 Chronic atrial fibrillation; I25.10 Atherosclerotic heart disease of native coronary artery without angina pectoris; Z95.5 Presence of coronary angioplasty implant and graft; I10 Essential (primary) hypertension; E11.9 Type 2 diabetes mellitus without complications; Z86.73 Personal history of transient ischemic attack (TIA), and cerebral infarction without residual deficits; Z79.82 Long term (current) use of aspirin; Z79.4 Long term (current) use of insulin; Z79.02 Long term (current) use of antithrombotics/antiplatelets; Z23 Encounter for immunization; R53.1 Weakness
CPT/HCPCS: 36415; 70450; 70551; 80053; 81003; 82962; 83036; 83690; 85025; 90686; 92610; 93005; 93306; 96360; 97162; 99285; G0378; J1815; J2405; J7040